=== PATIENT | male | born 1955 | race Caucasian/White ===

== ENCOUNTER 2018-03-24 01:18 | Inpatient (IN) ==
[2018-03-24] MEDS ORDERED: *HR* Ticagrelor 90 MG TABLET PO ONE (01:24)
[2018-03-24] MEDS ORDERED: *HR* Heparin 5,000 UNIT/ML VIAL IVP ONE (01:24)
[2018-03-24] MEDS ORDERED: Ondansetron 4 MG/2 ML VIAL IVP ONE (01:24)
[2018-03-24] MEDS ORDERED: *HR* Heparin 5,000 UNIT/ML VIAL IVP PRN ×2 (01:24)
--- NOTE | 2018-03-24 01:29 | Emergency Department Note ---
Disposition Clinical Impression: STEMI (ST elevation myocardial infarction) Qualifiers: Involved coronary artery: LAD coronary artery Qualified Code(s): I21.02 - ST elevation (STEMI) myocardial infarction involving left anterior descending coronary artery Disposition: Admitted As Inpatient Condition: Critical Time of Disposition: 01:50 Chest Pain HPI - General Chief Complaint: ED Chest Pain Stated Complaint: STEMI Time Seen by Provider: 03/24/18 01:21 Source: patient, EMS Mode of arrival: EMS Limitations: no limitations Vital Signs Reviewed: Yes Nursing Notes Reviewed: Yes - History of Present Illness HPI Narrative: 63-year-old male with a history of smoking, diabetes presents for evaluation of chest pain. Patient presents via EMS. Patient had a prehospital STEMI alert activated. Patient's complaining of chest pain retrosternal with radiation to the back and the left arm. Patient's prehospital EKG showed ST elevation in V1 and V2 V3 with ST depression to 3 and aVF. Patient states that he has been diaphoretic and vomiting. EMS report the patient's current full dose aspirin as well as 3 sublingual nitros without complete relief of the chest pain. Patient denies any history of heart attacks. Severity scale (1-10): 10 - Related Data Allergies Allergy/AdvReac Type Severity Reaction Status Date / Time No Known Allergies Allergy Verified 03/24/18 01:31 All systems ED: reviewed and negative except as stated. Constitutional: Denies: fever Cardiovascular: Reports: chest pain Respiratory: Denies: dyspnea Gastrointestinal: Reports: nausea, vomiting Chest Pain PMH - Past Medical History Medical history: Reports: diabetes, hyperlipidemia - Social History Smoking Status: Current every day smoker Alcohol use: Reports: none Drug use: Reports: none Physical Exam - General Limitations: no limitations General appearance: alert, in distress - Head Head exam: atraumatic, normocephalic, normal inspection - Eye Eye exam: Present: normal appearance, PERRL, EOMI - ENT ENT exam: normal exam, mucous membranes moist - Neck Neck exam: Present: normal inspection - Chest Chest inspection: Present: normal inspection, symmetric chest wall rise - Respiratory Respiratory exam: Present: normal lung sounds bilaterally - Cardiovascular Cardiovascular exam: Present: regular rate, normal rhythm. Absent: systolic murmur - Abdominal Exam Abdominal exam: Present: soft, Non-Tender - Extremities Exam Extremities exam: Present: normal inspection. Absent: pedal edema - Back Exam Back exam: Present: normal inspection - Neurological Exam Neurological exam: Present: alert, oriented X3, CN II-XII intact - Skin Skin exam: Present: warm, dry, intact, normal color Course Course Narrative: Discussed with the patient that he is actively have a heart attack. Patient will likely need cardiac catheterization. - Consultations Consultation #1: Discussed the patient's with Dr. Hargrove. Prehospital stimulator was activated. Patient's 12-lead on arrival shows more extensive ST elevation in the precordial leads. STEMI protocol orders are in place. Time: 01:30 Vital Signs Temperature 97.9 F 03/24/18 01:19 Pulse Rate 73 03/24/18 01:19 Respiratory Rate 22 03/24/18 01:19 Blood Pressure 134/69 03/24/18 01:19 O2 Sat by Pulse Oximetry 92 03/24/18 01:19 Temperature 97.9 F 03/24/18 01:19 Pulse Rate 73 03/24/18 01:19 Respiratory Rate 22 03/24/18 01:19 Blood Pressure 134/69 03/24/18 01:19 O2 Sat by Pulse Oximetry 92 03/24/18 01:19 Oxygen Delivery Oxygen Delivery Room Air Chest Pain - MDM Narrative Medical decision making narrative: Patient presented in acute distress. Patient was noted have anterior septal STEMI. [employer] Of [employer] was activated. Patient went intervention. Patient's vitals were stable during the ED course. A shunt was given antiplatelet and heparin. Patient was also ordered nitroglycerin. Patient left the emergency department stable condition. - EKG Data EKG attestation: Yes I reviewed and interpreted this EKG. EKG shows normal: sinus rhythm Rate: normal Rhythm: NSR [place]/QRS: normal ST segment elevation in: v1, v2, v3, v4, v5 T wave inversions noted in: II, III, aVF Interpretation: acute [place] S.B.A.Gem - S.B.A.R. Situation: Demographics Background: Presenting Complaint Assessment: Vital Signs, Course and respsone to treatment, Patient/Family Expectation Recommendation: Barrier(s) to disposition, Recommendation based on pending studies, treatments, or consults S.B.A.RPricilla Report Given to: Dr. Beena Chacko Repor Time: 01:49
[2018-03-24] MEDS ORDERED: Heparin 25,000 UNIT/500 ML D5W 25,000 UNIT/500 ML BAG IVC SCH (01:30)
[2018-03-24] MEDS ORDERED: *HR* Morphine 2 MG/ML SYRINGE IVP ONE (01:33)
[2018-03-24] MEDS ORDERED: 0.9 % Sodium Chloride 1,000 ML ONE (01:35)
[2018-03-24] MEDS ORDERED: ISOVUE-370 200 ML INFUS..BTL IV ONE ×2 (01:35→02:53)
[2018-03-24] MEDS ORDERED: *HR* Heparin 10,000 UNIT/10 ML VIAL ONE ×2 (01:35→03:07)
[2018-03-24] MEDS ORDERED: Heparin 1,000 UNITS/500 mL 500 ML ONE ×3 (01:35→04:29)
[2018-03-24] MEDS ORDERED: Verapamil 5 MG/2 ML VIAL ONE (01:40)
[2018-03-24] MEDS ORDERED: Nitroglycerin 1,000 MCG/10 ML VIAL IV ONE (01:40)
--- NOTE | 2018-03-24 01:45 | Pre-Sedation Evaluation ---
Pre-sedation evaluation - Pre-sedation checklist Date of procedure: 03/24/18 Procedure: [facility] Recent Vitals: Last Vital Signs Temp 97.9 F 03/24/18 01:19 Pulse 73 03/24/18 01:19 Resp 22 03/24/18 01:19 BP 134/69 03/24/18 01:19 Pulse Ox 92 03/24/18 01:19 H&P (including ROS) documented in medical record: Yes Previous reaction to sedatives/anesthetics: No Dietary Status: NPO after Midnight Airway Assessment: Patient can open mouth completely, TMJ function normal ASA Classification *see protocol: CLASS II-Mild systemic disease, E-EMERGENCY- Add to any of the above to indicate emergent (stemi) Plan of Care: Pt appropriate candidate for procedure/moderate/conscious sedation , Risks/benefits of procedure/sedation discussed w/ patient/family
[2018-03-24 01:46] LABS: Basophils # 0.1 K/mcL (0.0-0.2); Basophils % 0.9 %; Eosinophils # 0.3 K/mcL (0.0-0.6); Eosinophils % 1.9 %; Hematocrit 47.7 % (37.5-50.1); Hemoglobin 15.7 g/dL (12.9-16.9); Immature Granulocytes % 0.3 % (0-4); Lymphocytes # 4.9 K/mcL (0.6-4.6); Lymphocytes % 31.3 %; Mean Corpuscular HGB Conc 32.9 g/dL (31.6-35.5); Mean Corpuscular Hemoglobin 27.3 pg (28.0-33.3); Mean Corpuscular Volume 82.8 fL (83.0-100.0); Mean Platelet Volume 9.5 fL (9.4-12.4); Monocytes % 6.3 %; Neutrophils # 9.3 K/mcL (1.6-8.9); Platelet Count 349 K/mcL (140-400); Red Blood Count 5.76 M/mcL (4.19-5.50); Red Cell Distribution Width 13.2 % (11.5-14.5); Segmented Neutrophils % 59.3 %
--- NOTE | 2018-03-24 01:46 | History & Physical Report ---
Date of Encounter: 03/24/18 Time of Encounter: 13:30 24 Hour HP Update - Instructions Instructions: If the History and Physical is less than 30 days old and was completed prior to A.M. admission and or procedure and has NOT been updated on calendar day of procedure please complete this update prior to performing procedure. - Update Patient reports changes in Medical Condition: No Changes in examination, assessment, or condition: No Changes in Medication: No Preop tests/diagnostics Reviewed: Yes Surgery Remains Indicated: Yes Consent for Planned Operative Procedure(s) Verified: Yes
--- NOTE | 2018-03-24 01:48 | Cardiology History & Physical ---
Date of Encounter: 03/24/18 Time of Encounter: 14:00 Assessment and Plan (1) STEMI (ST elevation myocardial infarction) Current Visit: Yes Status: Acute A/R/B of emergent LHC including 1% chance of /CVA/CABG/ZORAIDA/bleeding were discussed. He is aware and agreeable with proceeding. EF assessment will be completed. Aspirin/brilinta/heparin have been given. Cardiac rehab when appropriate. Smoking cessation and controlling his diabetes. The assessment and plan as outlined above was discussed with the patient and/or family members who expressed understanding and agreement. All questions were answered. Qualifiers: Involved coronary artery: LAD coronary artery Qualified Code(s): I21.02 - ST elevation (STEMI) myocardial infarction involving left anterior descending coronary artery (2) Diabetes Current Visit: Yes Status: Acute SSI QID FS The assessment and plan as outlined above was discussed with the patient and/or family members who expressed understanding and agreement. All questions were answered. Qualifiers: Diabetes mellitus type: type 2 Diabetes mellitus complication status: with circulatory complication Diabetes mellitus complication detail: with other circulatory complications Qualified Code(s): E11.59 - Type 2 diabetes mellitus with other circulatory complications History of Present Illness Chief complaint: chest pain HPI: Mr. Galvez is a 63 year old male smoker with no previous cardiac history, uncontrolled diabetes, dyslipidemia presents with chest pain radiating around to back and left arm associated with nausea and vomiting. It was severe and minimally improved with aspirin and NTG. EKG shows anterior ST elevation MO and cath team activated. After, his family notes fairly significant fatigue and inability to exert himself for some time but no chest discomfort. They also note his legs are hurting all the time. Past Med Surg Social Fam HX - Past Medical History Medical history: diabetes, hyperlipidemia - Social History Smoking Status: Current every day smoker Alcohol use: none Drug use: none Medications and Allergies 3 Allergy/AdvReac Type Severity Reaction Status Date / Time No Known Allergies Allergy Verified 03/24/18 01:31 All Systems Review: The remainder of the systems were reviewed and are negative - Constitutional Constitutional: no chills, no fever(s) - EENT Nose, mouth and throat: no dysphagia, no epistaxis - Cardiovascular Cardiovascular: chest pain at rest, chest pain with exertion - Respiratory Respiratory: no hemoptysis, no wheezing - Gastrointestinal Gastrointestinal: no hematemesis, no hematochezia - Genitourinary Genitourinary: no hematuria, no nocturia - Musculoskeletal Musculoskeletal: no back pain, no myalgias - Integumentary Integumentary: no erythema, no rash - Neurological Neurological: no syncope, no tingling - Psychiatric Psychiatric: no hallucinations, no panic attacks - Hematological/Lymphatic Hematologic/Lymphatic: no easy bleeding, no easy bruising Physical Examination General: Conversant, Other HEENT: Atraumatic Neck: No JVD Cardiac: Reg Rate and Rhythm Lungs: Normal Breath Sounds Neuro: Alert and responsive Abdomen: Soft Skin: No rashes noted on visualized skin Musculoskeletal: No Chest Wall Tenderness Extremities: No Edema Other: distressed Results 03/24/18 05:58 03/24/18 05:58 - EKG Interpretation EKG results cardiology: personally reviewed (anteroseptal current of injury)
[2018-03-24 01:52] LABS: INR 1.1; Prothrombin Time 12.4 Seconds (9.4-12.1)
[2018-03-24] MEDS ORDERED: Dextrose Gel 15 GM/37.5 ML TUBE PO PRN ×2 (01:54)
[2018-03-24] MEDS ORDERED: D5% in Water 1,000 ML IVC PRN (01:54)
[2018-03-24] MEDS ORDERED: *HR* Dextrose 50 % in Water (Syg) 50 ML SYRINGE IVP PRN (01:54)
[2018-03-24] MEDS ORDERED: Ondansetron 4 MG/2 ML VIAL IVP PRN (01:55)
[2018-03-24] MEDS ORDERED: *HR* HYDROcodone/Acet 5/325 mg TABLET PO PRN (01:55)
[2018-03-24] MEDS ORDERED: *HR* Midazolam HCl 2 MG/2 ML VIAL ONE ×3 (01:57→02:58)
[2018-03-24] MEDS ORDERED: *HR* FentaNYL (PF) 100 MCG/2 ML VIAL ONE (01:57)
--- NOTE | 2018-03-24 01:59 | Emergency Department Note ---
Disposition Clinical Impression: STEMI (ST elevation myocardial infarction) Qualifiers: Involved coronary artery: LAD coronary artery Qualified Code(s): I21.02 - ST elevation (STEMI) myocardial infarction involving left anterior descending coronary artery Disposition: Admitted As Inpatient Condition: Critical General Adult HPI - General Chief complaint: ED Chest Pain Stated complaint: STEMI Time Seen by Provider: 03/24/18 01:21 Source: patient, EMS Mode of arrival: EMS Limitations: no limitations Nursing Notes Reviewed: Yes Vital Signs Reviewed: Yes - History of Present Illness Pain Scale: 10 - Related Data Allergies Allergy/AdvReac Type Severity Reaction Status Date / Time No Known Allergies Allergy Verified 03/24/18 01:31 Constitutional: Denies: fever Cardiovascular: Reports: chest pain Respiratory: Denies: dyspnea Gastrointestinal: Reports: nausea, vomiting Past Medical History - Past Medical History Medical history: Reports: diabetes, hyperlipidemia - Social History Smoking Status: Current every day smoker Alcohol use: Reports: none Drug use: Reports: none Physical Exam - General Limitations: no limitations General appearance: alert, in distress Course Vital Signs Temperature 97.9 F 03/24/18 01:19 Pulse Rate 73 03/24/18 01:19 Respiratory Rate 22 03/24/18 01:19 Blood Pressure 134/69 03/24/18 01:19 O2 Sat by Pulse Oximetry 92 03/24/18 01:19 Temperature 97.9 F 03/24/18 01:19 Pulse Rate 101 03/24/18 01:30 Respiratory Rate 22 03/24/18 01:19 Blood Pressure 129/70 03/24/18 01:30 O2 Sat by Pulse Oximetry 92 03/24/18 01:30 Oxygen Delivery Oxygen Delivery Room Air Medical Decision Making - Lab Data Result diagrams: 03/24/18 01:30 03/24/18 01:30 Lab Results 03/24/18 03/24/18 03/24/18 Range/Units 01:30 01:30 01:30 WBC 15.6 H (4.3-11.1) K/mcL RBC 5.76 H (4.19-5.50) M/mcL Hgb 15.7 (12.9-16.9) g/dL Hct 47.7 (37.5-50.1) % MCV 82.8 L (83.0-100.0) fL MCH 27.3 L (28.0-33.3) pg MCHC 32.9 (31.6-35.5) g/dL RDW 13.2 (11.5-14.5) % Plt Count 349 (140-400) K/mcL MPV 9.5 (9.4-12.4) fL Immature Gran % 0.3 (0-4) % Seg Neutrophils % 59.3 % Lymphocytes % 31.3 % Monocytes % 6.3 % Eosinophils % 1.9 % Basophils % 0.9 % Neutrophils # 9.3 H (1.6-8.9) K/mcL Lymphocytes # 4.9 H (0.6-4.6) K/mcL Monocytes # 1.0 (0.0-1.3) K/mcL Eosinophils # 0.3 (0.0-0.6) K/mcL Basophils # 0.1 (0.0-0.2) K/mcL PT 12.4 H (9.4-12.1) Seconds INR 1.1 APTT 33.0 (26.0-36.0) Seconds Sodium 136 (136-145) mEq/L Potassium 4.1 (3.5-5.1) mEq/L Chloride 103 (98-107) mEq/L Carbon Dioxide 25 (23-29) mEq/L BUN 8 (8-23) mg/dL Creatinine 0.81 (0.70-1.30) mg/dL Est GFR ( Amer) > 60 (> 60) Est GFR (Non-Af Amer) > 60 (> 60) BUN/Creatinine Ratio 10 (6-26) Glucose 365 H (70-105) mg/dL Calculated Osmolality 295 (280-300) Calcium 9.4 (8.6-10.3) mg/dL Magnesium 1.9 (1.6-2.6) mg/dL Troponin I 0.06 H* (< 0.04) ng/mL Critical Care Time Critical Care Time: Yes Total Critical Care Time: 35 Attestation: Critical care performed: Time is exclusive of separately billable procedures. Time includes: direct patient care, patient reassessment, coordination of patient care, interpretation of data (laboratory data, radiology data, and respiratory data), review of patient's medical records, medical consultation and documentation of patient care. Procedures included in critical care time: Procedures excluded from critical care time: Attestation Statement - Attestation Attestation: I, Ang Mann MD, personally evaluated this patient and discussed their management with the resident physician. I reviewed the resident's note and agree with the documented findings, medical decision making, and plan of care. 63-year-old male presents to the emergency department by ambulance with a complaint of substernal chest pain radiating into the left chest and back and down the left arm. Pain started about 1 hour 15 minutes prior to arrival. He admits to nausea and vomiting and diaphoresis. Denies shortness of breath. No prior cardiac history. Patient does have a history of diabetes in the past but not been on any medication and does not have a doctor for the past 10 years. Patient rates the pain a 10 out of 10. He received aspirin per EMS prior to arrival. He received nitroglycerin 3 with no relief. Prehospital EKG showed an anteroseptal STEMI. Repeat EKG on arrival here confirms anteroseptal STEMI with ST elevations in V1 through V5 and inferior ST depressions. A STEMI alert was called prior to patient's arrival in the emergency department based on the transmitted EKG. On examination patient is a well-developed well-nourished male in no acute distress. He is alert and oriented 3. There is no cyanosis or diaphoresis. Breath sounds are clear and equal bilaterally. Heart regular rate and rhythm. Soft and nontender with normal bowel sounds. No pedal edema. Labs reviewed. Troponin 0.06. Patient taken directly from the emergency department to the cardiac catheter lab.
[2018-03-24] MEDS ORDERED: Tirofiban 12.5 MG/250ML 12.5 MG/250 ML BAG IVC SCH (02:00)
[2018-03-24 02:08] LABS: BUN/Creatinine Ratio 10 (6-26); Blood Urea Nitrogen 8 mg/dL (8-23); Calcium 9.4 mg/dL (8.6-10.3); Carbon Dioxide 25 mEq/L (23-29); Chloride 103 mEq/L (98-107); Glucose 365 mg/dL (70-105); Magnesium 1.9 mg/dL (1.6-2.6); Osmolality,Calculated 295 (280-300); Potassium 4.1 mEq/L (3.5-5.1); Sodium 136 mEq/L (136-145); eGFR For African Americans > 60 (> 60); eGFR For Non-African Americans > 60 (> 60)
[2018-03-24 02:19] LABS: Troponin I 0.06 ng/mL (< 0.04)
[2018-03-24] MEDS ORDERED: Tirofiban 12.5 MG/250ML 12.5 MG/250 ML BAG ONE (02:25)
[2018-03-24] MEDS ORDERED: *HR* Adenosine 6 MG/2 ML VIAL IVP ONE (02:29)
[2018-03-24] MEDS ORDERED: niCARdipine 20 MG/200 ML MLS IVC ONE (02:33)
[2018-03-24] MEDS ORDERED: *HR* Metoprolol 5 MG/5 ML VIAL IVP ONE (03:48)
[2018-03-24] MEDS ORDERED: Amiodarone Premix 360 MG/200 ML BAG IVC ONE ×2 (04:24→05:03)
[2018-03-24] MEDS: FentaNYL (PF) 1,000 MCG in 0.9 % Sodium Chloride 80 ML IVC SCH ×2 (05:00→20:30)
[2018-03-24] MEDS: 0.9 % Sodium Chloride 1,000 ML IVC SCH ×2 (05:00→21:23)
--- NOTE | 2018-03-24 05:00 | Event Note ---
Date of Encounter: 03/24/18 Time of Encounter: 05:00 - Cardiology Event Note Poorly controlled diabetic smoker presented with anterior STEMI. Proceeded with transradial LHC, occluded proximal LAD. PTCA of proximal mid LAD with 2.0 compliant restoring SHARI 2 flow followed by 2.25 MARYAN overlapping (24+28) proximal to mid. Slow flow after this, IC therapies given. Patient already on aggrastat/heparin/brilinta/aspirin. PTCA of proximal portion of stents. At this point there was no flow past the proximal portion of the stent. Patient was becoming increasing agitated and unable to stop moving so he was intubated with some difficulty requiring anesthesia support with glidescope after rocuronium/etomidate/versed/fentanyl. At this point, wanted to support him with IABP or Impella but after accessing the femoral, found both common iliacs were occluded and unable to wire past lesion. Reballooned the stents and gave additional IC meds for no flow/slow flow but no improvement. Evaluated the RCA which was diffusely diseased. EF 20-25% with akinetic AL/apex, however LVEDP < 20. Patient remained hemodynamically stable without pressors and with rare PVC. Contacted our cardiac surgeon who did not think he was candidate for emergent CABG. Also discussed with Interventional cardiology at [place], CT surgery [place] and CT surgery at [place] for various options including emergent CABG for DAVIS LAD and left axillary impella. At this point since he is stable, the consensus among everyone was there was no need for intervention or surgery at this point and to continue supportive care; they did kindly offer to take the patient in transfer. Since he is stable at this time, will keep him intubated and sedated until Sunday, try to wean him off of sedation/ ventilator. Family was informed of all events and discussion with surgeons and IC at [place] without any further questions.
--- NOTE | 2018-03-24 05:30 | Invasive Diagnostic Lab Proc ---
Name: Doug Galvez Date of Study: 03/24/2018 Date: 1955 Ht: 68.9in Medical Record#: [id number] Age: 63 Wt: 149.91lb Gender: Male BSA: 1.83 Order #: [id number] BMI: 22.2 Physicians Procedure Physician: John Hargrove MD, [facility] Referring MD: None Referring MD: Staff Name Position Time In Yong Nguyễn RN Monitor 01:56 AM Deangelo Hsieh RN Room Service Clerk 01:56 AM Kori Chiu RT (R) Scrub 01:56 AM Indications Indication STEMI Procedures Performed Procedure PRQ CARD REVASC LA 1 VSL L HRT ARTERY/VENTRICLE ANGIO Pre-Procedure Checklist Informed consent is complete signed and on chart. H&P is on chart. ID band is on and ID verified with patient. Pt not NPO for procedure and MD aware. The procedure was described for the patient and questions were answered. Blood Pressure: 134/69 ECG is on chart. Rhythm: NSR Plan of Care Patient will tolerate the procedure without complications. Adequate level of comfort will be maintained. Hemodynamics will remain stable Patient will recover from procedure without complications. Respiratory function will be maintained. Cardiac rhythm will remain stable. Patient temperature will be maintained. Patient and/or family have verbalized understanding of the procedure. Patient Education Chief Complaint/Reason for Test: Cardiac Cath Developmental Category: Adult (18-64 years) Developmentally Appropriate for Age: Yes Learning Barriers: Sedated Education Needs: Procedure Education Method: Verbal Information Taught: Cardiac Cath Educational Evaluation: Able to repeat information Intravenous Access Time IV Size Location DC'd Fluid/Drip Rate Units RN 01:39 AM 18g 1 1/" Patent On Arrival Rt Forearm Deangelo Hsieh RN Lt Forearm 0.9NaCl 25 ml/hr Deangelo Hsieh RN Allergies No Known Allergies Vital Signs Time BP (mmHg) HR (bpm) O2 Sat. RR (bpm) LOC 01:39 AM 134 / 69 73 92 % 22 5 = Fully awake and oriented or at pre-proc level 01:57 AM / % 5 = Fully awake and oriented or at pre-proc level 01:57 AM / % 4 = Oriented but drowsy 02:12 AM / % 4 = Oriented but drowsy 02:27 AM / % 3 = Answers simple questions/follows commands 03:00 AM / % 0 = No reflexes elicited 03:18 AM / % 0 = No reflexes elicited 03:33 AM / % 0 = No reflexes elicited 03:48 AM / % 1 = Reflexes present/moves spontaneously 04:03 AM / % 0 = No reflexes elicited 01:56 AM 118 / 66 101 96 % 02:01 AM 125 / 72 102 93 % 02:06 AM 112 / 66 105 93 % 02:11 AM 118 / 64 100 96 % 02:16 AM 124 / 86 100 96 % 02:21 AM 126 / 71 98 96 % 02:26 AM 118 / 73 98 92 % 02:31 AM 121 / 80 90 95 % 02:36 AM 104 / 59 118 94 % 02:41 AM 109 / 68 96 92 % 03:37 AM 163 / 101 125 98 % 03:41 AM 156 / 88 130 97 % 03:46 AM 161 / 96 129 98 % 03:51 AM 160 / 85 118 97 % 03:56 AM 137 / 85 103 97 % 04:01 AM 151 / 89 105 98 % 04:06 AM 147 / 85 106 98 % 04:11 AM 133 / 82 105 98 % 04:16 AM 136 / 79 106 98 % 04:21 AM 140 / 80 107 99 % 02:46 AM 113 / 60 97 93 % 02:51 AM 104 / 64 99 95 % 02:56 AM 119 / 65 107 87 % 03:01 AM 117 / 67 109 95 % 03:06 AM 116 / 64 103 98 % 03:11 AM 112 / 66 106 98 % 03:16 AM 112 / 70 110 99 % 03:21 AM 118 / 75 112 98 % 03:26 AM 100 / 62 97 98 % 03:31 AM 112 / 71 105 97 % 04:26 AM 116 / 75 103 98 % 04:31 AM 113 / 71 102 99 % 04:36 AM 114 / 67 102 99 % 04:18 AM / % 0 = No reflexes elicited Procedural Medications Time Medication Dose Units Method Given By 01:57 AM Oxygen 3 L/min nasal cannula Deangelo Hsieh RN 02:00 AM Lidocaine 2% 0.5 ml Subcutaneous John Hargrove MD, FACC 02:01 AM Versed 2 mg Intravenous Deangelo Hsieh RN 02:01 AM Fentanyl 50 mcg Intravenous Deangelo Hsieh RN 02:01 AM Heparin 0 units Nitroglycerin 200 mcg Verapamil 2.5 mg Intraarterial John Hargrove MD, FACC 02:03 AM Oxygen 5 L/min nasal cannula Deangelo Hsieh RN 02:16 AM Versed 1 mg Intravenous Deangelo Hsieh RN 02:16 AM Fentanyl 25 mcg Intravenous Deangelo Hsieh RN 02:23 AM Versed 1 mg Intravenous Deangelo Hsieh RN 02:23 AM Fentanyl 25 mcg Intravenous Deangelo Hsieh RN 02:27 AM Aggrastat Bolus: 33 ml Intravenous Deangelo Hsieh RN 02:28 AM Angiomax 1.75mg/kg/hr: 12 ml/hr Intravenous Deangelo Hsieh RN 02:30 AM Adenosine 200 mcg Intracoronary John Hargrove MD, FAC 02:32 AM Nitroglycerin 200 mcg IntracoronJohn Torres MD 02:35 AM Cardene 100 mcg Intracoronary John Hargrove MD 02:42 AM Lidocaine 2% 10 ml Subcutaneous John Hargrove MD, FAC 02:42 AM Heparin 3000 units Intravenous Yong Nguyễn RN 03:08 AM Heparin 2000 units Intravenous Deangelo Hsieh RN 02:55 AM Versed 2 mg Intravenous Deangelo Hsieh RN 02:50 AM Rocuronium 50 mg Intravenous Yong Nguyễn RN 02:50 AM Etomidate 20 mg Intravenous Yong Nguyễn RN 03:24 AM Cardene 100 mcg IntracJohn Rausch MD 03:23 AM Cardene 100 mcg IntracJohn Rausch MD 03:22 AM Cardene 100 mcg IntracoronJohn Torres MD 03:51 AM Lopressor 2.5 mg Intravenous Deangelo Hsieh RN 03:40 AM Fentanyl 50 mcg/hr Intravenous Deangelo Hsieh RN 03:40 AM versed 5 mg/hr Intravenous Yong Nguyễn RN 04:01 AM Rocuronium 50 mg Intravenous Deangelo Hsieh RN 04:45 AM Amiodarone 1 mg/min Intravenous Deangelo Hsieh RN ASA Classification: Emergent Procedure: ASA score is assumed Fox Score Preprocedure Postprocedure Activity 2- Moves 4 extremities sustained head lift Activity 0- Unable to move extremities or lift head Circulation 2- SBP +/= 20 points of pre-anesthetic level Circulation 2- SBP +/= 20 points of pre-anesthetic level Consciousness 2- Awake and alert oriented x 3 Consciousness 0- Non-responsive O2 Saturation 2- Able to maintain O2 satruation of 92% on room air O2 Saturation 1- Needs O2 inhalation to maintain O2 saturation of 90% Respiratory 2- Able to deep breathe and cough well Respiratory 0- Apneic requires ventilator or assisted respiration Total Score 10 Total Score 3 Contrast Agent: Isovue Diagnostic Contrast: 263 ml Total Contrast: 263 ml Fluoro Dose: 1320 mGy Activated Clotting Time Time Seconds to Clot 02:42 AM 189 03:08 AM 227 03:47 AM 202 Procedure Log Time Note Enter By 01:36 AM CathStat 01:55 AM Case Start 01:56 AM Vitals capture started with the following parameters, Patient=Adult, Interval=5 min, Initial Hccfrrjo=170 mmHg, Deflation Rate=5 mmHg, Cuff placed on Right Arm 01:56 AM Pt arrived to [place] lab technician 2 at 01:50 csmith :56 AM Yong Nguyễn RN Position: Monitor Time in: csmith 01:56 AM Deangelo Hsieh RN Position: Room Service Clerk Time in: :56 csmith :56 AM ZV=142 bpm, MDJY=699/66 mmhg, SpO2=96.0 %, Comment=sr 01:56 AM Kori Chiu (R) Position: Scrub Time in: :56 csmith 01:56 AM Patient charges- Angio tray pack, Navilyst 3mm J, Pulse Oximetry and ACIST tubing and transducer csmith :56 AM Hair removed from procedure site in procedure lab using clippers. Right wrist and right groin prepped with Chloraprep by Kori Chiu (R), then patient was draped. Skin intact. csmith :56 AM Physician arrived :56 csmith 01:57 AM Procedure start [facility] Time: :57 Oxygen on at 3 L/min per nasal cannula by Deangelo Hsieh RN [facility] :57 AM Time: :57 Patient comfortable and pain free: Yes [facility] Time: :57LOC: 5 = Fully awake and oriented or at pre-proc level csmith :57 AM Recorded ECG: OZ=058 Condition=Condition 1 02:00 AM Time out performed according to hospital policy csmith 02:00 AM Time: 02:00 0.5 ml Lidocaine 2% to right radial Subcutaneous Given by John Hargrove MD, [facility] csmith 02:01 AM Access obtained by percutaneous puncture. 5/6Fr 11cm Terumo [place] sheath placed in right Radial artery. [id number] [facility] 02[facility]01 AM Time: 02:01 Versed 2 mg Intravenous Given by Deangelo Hsieh RN csmith 02:01 AM Time: 02:01 Fentanyl 50 mcg Intravenous Given by Deangelo Hsieh RN csmith 02:01 AM FR=368 bpm, HCZL=562/72 mmhg, SpO2=93.0 %, Comment=sr 02:01 AM Time: 02:01 Patient given 0 units Heparin, 200 mcg Nitroglycerin, and 2.5 mg Verapamil Intraarterial by John Hargrove MD, [facility]. This is given to reduce risk of vessel spasm and thrombosis. csmith 02:02 AM 0.035 260cm Navilyst 3mmJ wire [id number] csmith 02:03 AM 6Fr RBL 3.5 [place] guide catheter was used to cannulate the PCI vessel successfully. reused? No csmith 02:03 AM Pressure channel 1 zeroed. 02:03 AM Time: 02:03 Oxygen on at 5 L/min per nasal cannula by Deangelo Hsieh RN csmith 02:03 AM LCA angiography performed in multiple views. csmith 02:05 AM Recorded Pressure: Ao, HR=99, Condition=Condition 1 (Aorta) Ao 124/85/103 02:05 AM Lesion found in Proximal LAD. Pre Stenosis: 100 Pre SHARI Flow: 0: No Flow/No perfusion csmith 02:[address] [place] 190cm guide wire across target lesion- successful. reused? No csmith 02:06 AM wire across lesion csmith 02:06 AM 2.0 mm x 15 mm Emerge Monorail balloon across target lesion- successful. reused? No csmith 02:06 AM XF=172 bpm, CTCL=460/66 mmhg, SpO2=93.0 %, Comment=sr 02:08 AM Balloon inflated @ 6 pallavi for 8 seconds csmith 02:08 AM Balloon inflated @ 12 pallavi for 10 seconds csmith 02:09 AM Balloon inflated @ 12 pallavi for 11 seconds csmith 02:09 AM Balloon inflated @ 10 pallavi for 9 seconds csmith 02:09 AM Balloon inflated @ 10 pallavi for 9 seconds csmith 02:10 AM Balloon inflated @ 10 pallavi for 10 seconds csmith 02:11 AM Balloon inflated @ 14 pallavi for 13 seconds csmith 02:11 AM OO=003 bpm, JIFY=472/64 mmhg, SpO2=96.0 %, Comment=sr 02:12 AM Balloon inflated @ 14 pallavi for 11 seconds csmith 02:12 AM Time: 01:57LOC: 4 = Oriented but drowsy csmith 02:12 AM Time: 01:57 Patient comfortable and pain free: Yes csmith 02:16 AM 2.5mm x 28mm Synergy drug-eluting stent across target lesion- successful Lot #[id number] csmith 02:16 AM Time: 02:16 Versed 1 mg Intravenous Given by Deangelo Hsieh RN csmith 02:16 AM FY=997 bpm, IIBM=561/86 mmhg, SpO2=96.0 %, Comment=sr 02:16 AM Time: 02:16 Fentanyl 25 mcg Intravenous Given by Deangelo Hsieh RN csmith 02:18 AM Stent deployed @ 12 pallavi for 21 seconds csmith 02:20 AM Stent delivery system removed intact. csmith 02:20 AM 2.25mm x 24mm Synergy drug-eluting stent across target lesion- successful Lot #[id number] csmith 02:21 AM Recorded Pressure: Ao, TK=726, Condition=Condition 1 (Aorta) Ao 132/88/109 02:21 AM HR=98 bpm, DDYG=781/71 mmhg, SpO2=96.0 %, Comment=sr 02:22 AM 2.25mm x 24mm Synergy drug-eluting stent across target lesion- successful Lot #[id number], stent deployed @ 11 pallavi for 16 csmith 02:23 AM Time: 02:23 Versed 1 mg Intravenous Given by Deangelo Hsieh RN csmith 02:23 AM Time: 02:23 Fentanyl 25 mcg Intravenous Given by Deangelo Hsieh RN csmith 02:25 AM 2.5 mm x 15mm NC Trek Rx balloon across target lesion- successful. reused? No csmith 02:26 AM Balloon inflated @ 16 pallavi for 14 seconds csmith 02:26 AM HR=98 bpm, UHCW=361/73 mmhg, SpO2=92.0 %, Comment=sr 02:27 AM Balloon inflated @ 14 pallavi for 8 seconds csmith 02:27 AM Time: 02:12 Patient comfortable and pain free: Yes csmith 02:27 AM Time: 02:12LOC: 4 = Oriented but drowsy csmith 02:27 AM Time: 02:27 Aggrastat Bolus: 33 ml Intravenous Given by Deangelo Hsieh RN Green pump csmith 02:28 AM Balloon inflated @ 15 pallavi for 8 seconds csmith 02:28 AM Balloon inflated @ 16 pallavi for 12 seconds csmith 02:28 AM Time: 02:28 Angiomax 1.75mg/kg/hr: 12 ml/hr Intravenous Given by Deangelo Hsieh RN Green pump csmith 02:29 AM Balloon catheter removed intact. csmith 02:31 AM Time: 02:30 Adenosine 200 mcg administered Intracoronary by John Hargrove MD, [facility] csmith 02:31 AM Recorded Pressure: Ao, BQ=295, Condition=Condition 1 (Aorta) Ao 141/88/112 02:31 AM HR=90 bpm, YVSQ=984/80 mmhg, SpO2=95.0 %, Comment=sr 02:32 AM Time: 02:32 Nitroglycerin 200 mcg Intracoronary Given by Jonh Hargrove MD csmith 02:35 AM Time: 02:35 Cardene 100 mcg Intracoronary Given by John Hargrove MD csmith 02:36 AM IV=695 bpm, VFTG=615/59 mmhg, SpO2=94.0 %, Comment=sr 02:37 AM Patient being uncooperative despite repeated education to hold still. MOving extremities x 4. RT called to intubate. csmith 02:41 AM HR=96 bpm, BQRG=865/68 mmhg, SpO2=92.0 %, Comment=sr 02:42 AM Time: 02:42 10 ml Lidocaine 2% to right groin Subcutaneous Given by John Hargrove MD, [facility] csmith 02:42 AM Access obtained by percutaneous puncture. 6Fr 10cm Terumo [place] sheath placed in right Femoral artery. [id number] csmith 02:42 AM Time: 02:27LOC: 3 = Answers simple questions/follows commands csmith 02:42 AM Time: 02:27 Patient comfortable and pain free: Yes csmith 02:42 AM At 02:42 the ACT was 189 seconds. csmith 02:43 AM Time: 02:42 Heparin 3000 units Intravenous Given by Yong Nguyễn RN IVP csmith 02:46 AM HR=97 bpm, NMYR=401/60 mmhg, SpO2=93.0 %, Comment=sr 02:50 AM RT at bedside ready for intubation, suction, C-mac video laryngoscope and ETT available csmith 02:50 AM Time: 02:50 Rocuronium 50 mg Intravenous Given by Yong Nguyễn RN csmith 02:50 AM Time: 02:50 Etomidate 20 mg Intravenous Given by Yong Nguyễn RN csmith 02:51 AM HR=99 bpm, BANO=912/64 mmhg, SpO2=95.0 %, Comment=sr 02:55 AM RT unable to intubate x 1 attempt with C-mac. Anesthesia paged. Pt bagged per BVM and oral airway without difficulty. Patient to ventilator. csmith 02:55 AM Time: 03:09 Versed 2 mg Intravenous Given by Deangelo Hsieh RN csmith 02:56 AM YD=146 bpm, WLET=652/65 mmhg, SpO2=87.0 %, Comment=sr 03:01 AM XM=764 bpm, ASWZ=756/67 mmhg, SpO2=95.0 %, Comment=sr 03:06 AM LU=734 bpm, QTOC=086/64 mmhg, SpO2=98.0 %, Comment=sr 03:08 AM At 03:08 the ACT was 227 seconds. [facility] 03[facility] AM Time: 03:08 Heparin 2000 units Intravenous Given by Deangelo Hsieh RN [facility] 03:11 AM IL=929 bpm, TGEJ=891/66 mmhg, SpO2=98.0 %, Comment=sr 03:16 AM BD=251 bpm, FBAN=105/70 mmhg, SpO2=99.0 %, Comment=sr 03:18 AM Anesthesia at bedside (Dr. Kay and Davy Yusuf [employer] W[employer]E TECHNICIAN). Intubated x 1 attempt with Cmac per B Yusuf without difficulty. Bilateral chest rise and + color change with CO2 monitor. Patient to ventilator 100% FiO2, peep 5, tv 500ml, rr 14 [facility] 03:18 AM Time: 03:00LOC: 0 = No reflexes elicited [facility] 03:21 AM BG=510 bpm, RFMF=813/75 mmhg, SpO2=98.0 %, Comment=sr 03:23 AM Pressure channel 1 zeroed. 03:24 AM Time: 03:24 Cardene 100 mcg Intracoronary Given by John Hargrove MD [facility] 03:25 AM Time: 03:23 Cardene 100 mcg Intracoronary Given by John Hargrove MD [facility] 03:26 AM Time: 03:22 Cardene 100 mcg Intracoronary Given by John Hargrove MD [facility] 03:26 AM HR=97 bpm, QOFK=634/62 mmhg, SpO2=98.0 %, Comment=sr 03:31 AM CZ=333 bpm, SJMW=756/71 mmhg, SpO2=97.0 %, Comment=sr 03:31 AM 2.25 mm x 15 mm Emerge Monorail balloon across target lesion- successful. reused? No csmith 03:32 AM Balloon inflated @ 6 pallavi for 10 seconds csmith 03:32 AM balloon removed intact csmith 03:32 AM 2.25 mm x 15mm NC Trek Rx balloon across target lesion- successful. reused? No csmith 03:33 AM Time: 03:18 Patient comfortable and pain free: Yes csmith 03:33 AM Time: 03:18LOC: 0 = No reflexes elicited csmith 03:33 AM Balloon inflated @ 12 pallavi for 15 seconds csmith 03:33 AM Balloon inflated @ 12 pallavi for 12 seconds csmith 03:34 AM Balloon inflated @ 12 pallavi for 6 seconds csmith 03:35 AM Balloon inflated @ 12 pallavi for 5 seconds csmith 03:36 AM balloon and wire removed csmith 03:37 AM PR=709 bpm, QDII=845/101 mmhg, SpO2=98.0 %, Comment=sr 03:38 AM catheter removed csmith 03:38 AM 6Fr JR 4 [place] guide catheter was used to cannulate the PCI vessel successfully. reused? No csmith 03:39 AM RCA angiography performed in multiple views. csmith 03:40 AM Time: 03:40 Fentanyl 50 mcg/hr Intravenous Given by Deangelo Hsieh RN Green pump csmith 03:40 AM Coronary Dominance: Co-dominant csmith 03:40 AM Time: 03:40 versed 5 mg/hr Intravenous Given by Yong Nguyễn RN Green pump csmith 03:40 AM catheter removed csmith 03:40 AM 5Fr Pigtail catheter inserted over the wire [facility] csmith 03:40 AM Catheter selectively placed in left ventricle csmith 03:41 AM Recorded Pressure: LV, LE=360, Condition=Condition 1 (Left Ventricle) LV 171/9/22 03:41 AM MT=172 bpm, ICXV=756/88 mmhg, SpO2=97.0 %, Comment=sr 03:42 AM Bolus angiogram of left Ventricle complete: 12 ml/sec for a total of 20 mls csmith 03:42 AM Catheter removed csmith 03:43 AM Recorded Pressure: LV, Ao, JM=513, Condition=Condition 1 (Left Ventricle) LV 66/65/64, (Aorta) Ao 133/41/86 03:43 AM Recorded Pressure: LV, Ao, JY=186, Condition=Condition 1 (Left Ventricle) LV 156/10/15, (Aorta) Ao 158/72/112 03:44 AM wire removed csmith 03:[address] Hargrove reviewing films csmith 03:46 AM DP=209 bpm, FYOZ=027/96 mmhg, SpO2=98.0 %, Comment=sr 03:47 AM At 03:47 the ACT was 202 seconds. csmith 03:48 AM Time: 03:33LOC: 0 = No reflexes elicited csmith 03:48 AM Time: 03:33 Patient comfortable and pain free: Yes csmith 03:51 AM QH=276 bpm, JHNQ=427/85 mmhg, SpO2=97.0 %, Comment=sr 03:51 AM Time: 03:51 Lopressor 2.5 mg Intravenous Given by Deangelo Hsieh RN csmith 03:53 AM Lesion found in Proximal RCA. Pre Stenosis: 50 Pre SHARI Flow: 3: Complete and Brisk Flow/Perfusion csmith 03:53 AM Lesion found in Distal RCA. Pre Stenosis: 80 Pre SHARI Flow: 3: Complete and Brisk Flow/Perfusion csmith 03:53 AM Lesion found in Right PDA. Pre Stenosis: 70 Pre SHARI Flow: 3: Complete and Brisk Flow/Perfusion csmith 03:[address] Hargrove discussing case with [place] [facility], [place] [facility] and Interventional Cardiology on-call csmith 03:56 AM QS=650 bpm, GKZZ=096/85 mmhg, SpO2=97.0 %, Comment=sr 04:[address] Hargrove talking to Dr. Rahman at this time. Dr. Rahman defers taking patient to surgery this morning. csmith 04:01 AM Time: 04:01 Rocuronium 50 mg Intravenous Given by Deangelo Hsieh RN csmith 04:01 AM XU=818 bpm, ZARA=826/89 mmhg, SpO2=98.0 %, Comment=sr 04:02 AM Procedure completed at 04:02 csmith 04:02 AM Did you address SHARI flow and Dominance? Yes csmith 04:03 AM Sign out completed: Radiation Dose 1320 mGy Fluoro Time: 12.5 Isovue 370 - 200ml contrast 263 ml given by John Hargrove MD, FACC. Complications: NoneCardiac Rehab Consult needed: YesConfirmed administered medications: Yes csmith 04:03 AM Isovue 370 - 200ml,2 Bottle(s) used. csmith 04:03 AM Sheath left in place to be pulled on floor/holding area csmith 04:03 AM Estimated Blood Loss: less than 20cc csmith 04:03 AM Time: 03:48 Patient comfortable and pain free: Yes csmith 04:03 AM Time: 03:48LOC: 1 = Reflexes present/moves spontaneously csmith 04:03 AM Post ECG NSR csmith 04:05 AM Post Blood Pressure 137/74 csmith 04:05 AM No information taught to patient, patient unable to learn d/t critical illness/intubation/sedation at this time csmith 04:05 AM Plavix, Effient or Brilinta given No - given in ED csmith 04:06 AM Family placed in consult room. csmith 04:06 AM YF=406 bpm, QDSL=866/85 mmhg, SpO2=98.0 %, Comment=st 04:11 AM [facility] unable to take patient at this time. Dr. Hargrove talking with [facility] Dr. Ashley at this time. csmith 04:11 AM KG=197 bpm, DLOB=948/82 mmhg, SpO2=98.0 %, Comment=sr 04:16 AM BM=675 bpm, NUGR=968/79 mmhg, SpO2=98.0 %, Comment=sr 04:18 AM Time: 04:03 Patient comfortable and pain free: Yes csmith 04:18 AM Time: 04:03LOC: 0 = No reflexes elicited csmith 04:21 AM MY=028 bpm, OJJS=721/80 mmhg, SpO2=99.0 %, Comment=sr 04:23 AM Aggrastat gtt stopped at this time csmith 04:23 AM Arterial sheath pulled, Vasc Band closure device used and was Successful S/N. csmith 04:26 AM BE=540 bpm, ELZT=467/75 mmhg, SpO2=98.0 % 04:31 AM BH=201 bpm, JVFB=304/71 mmhg, SpO2=99 % 04:36 AM FK=387 bpm, RIOP=305/67 mmhg, SpO2=99 % 04:38 AM Time: 04:18LOC: 0 = No reflexes elicited csmith 04:38 AM Time: 04:18 Patient comfortable and pain free: Yes csmith 04:44 AM Stewart inserted utilizing sterile technique per Deangelo Hsieh RN csmith 04:45 AM Time: 04:45 Amiodarone 1 mg/min Intravenous Given by Deangelo Hsieh RN Green pump csmith 04:52 AM Report given to Carmen FRAUSTO Pt taken to ICU Room #4. 04:51 csmith 04:52 AM Patient out of room: 04:52 csmith Complications Complication None Hemodynamics Pressures Site Systolic/A Wave Diastolic/V Wave Mean AO 124 85 103 AO 132 88 109 AO 141 88 112 LV 171 9 22 LV 66 65 64 AO 133 41 86 LV 156 10 15 AO 158 72 112 Post Procedure Information Blood Pressure: 137/74 mmHg Rhythm: NSR Post procedural instructions were given Surgery consult for CABG Closure Device Time Device Success/Fail 03/24/2018 4:30:00 AM Mechanical Compression yes Site Checks Time Location Status Staff Sheath In? Note 04:36 AM Rt Groin No bleeding/ No Hematoma Kori Chiu RT (R) 04:34 AM Lt Groin No bleeding/ No Hematoma Kori Chiu RT (R) 04:36 AM Rt Wrist No bleeding/ No Hematoma Kori Chiu RT (R) Pulses Time Site Pre-Procedure Post-Procedure Note 03/24/2018 2:30:00 AM Rt Radial 2+ 1+ 03/24/2018 2:30:00 AM Bilateral DP & PT Doppler Doppler Updated by Yong Nguyễn RN on 03/24/2018 5:21:37 AM electronically signed on 03/24/2018 5:23:12 AM with status of Final
[2018-03-24] MEDS: Nitroglycerin 25 MG/250 ML INFUS..BTL IVC SCH ×2 (05:41→23:28)
[2018-03-24] MEDS: *HR* Enoxaparin 40 MG/0.4 ML SYRINGE SQ SCH (05:53)
[2018-03-24] MEDS: Insulin LISPRO 300 UNITS/3 ML VIAL SQ SCH ×4 (05:53→23:26)
[2018-03-24 06:11] LABS: Basophils # 0.1 K/mcL (0.0-0.2); Basophils % 0.6 %; Eosinophils % 0.1 %; Hematocrit 46.4 % (37.5-50.1); Hemoglobin 15.1 g/dL (12.9-16.9); Immature Granulocytes % 0.6 % (0-4); Lymphocytes # 1.3 K/mcL (0.6-4.6); Lymphocytes % 8.5 %; Mean Corpuscular HGB Conc 32.5 g/dL (31.6-35.5); Mean Corpuscular Hemoglobin 27.1 pg (28.0-33.3); Mean Corpuscular Volume 83.3 fL (83.0-100.0); Mean Platelet Volume 9.4 fL (9.4-12.4); Monocytes # 0.5 K/mcL (0.0-1.3); Monocytes % 3.4 %; Neutrophils # 13.6 K/mcL (1.6-8.9); Platelet Count 335 K/mcL (140-400); Red Blood Count 5.57 M/mcL (4.19-5.50); Red Cell Distribution Width 13.4 % (11.5-14.5); Segmented Neutrophils % 86.8 %
[2018-03-24 06:30] LABS: BUN/Creatinine Ratio 14 (6-26); Blood Urea Nitrogen 9 mg/dL (8-23); Calcium 8.5 mg/dL (8.6-10.3); Carbon Dioxide 26 mEq/L (23-29); Chloride 104 mEq/L (98-107); Glucose 423 mg/dL (70-105); Osmolality,Calculated 297 (280-300); Sodium 135 mEq/L (136-145); eGFR For African Americans > 60 (> 60); eGFR For Non-African Americans > 60 (> 60)
[2018-03-24] MEDS ORDERED: Insulin LISPRO 300 UNITS/3 ML VIAL SQ SCH ×2 (07:30→21:00)
--- NOTE | 2018-03-24 07:46 | Pulmonology Consult Note ---
<Margaux Sifuentes M - Last Filed: 03/24/18 09:06> Date of Encounter: 03/24/18 Medications and Allergies No Known Home Drugs 03/24/18 [History] 3 Allergy/AdvReac Type Severity Reaction Status Date / Time No Known Allergies Allergy Verified 03/24/18 14:33 All Systems: The remainder of the systems were reviewed and are negative Physical Examination Vital Signs: Vital Signs, Last 4 Hours Temp Pulse Pulse Pulse Resp BP Pulse Ox 03/24/18 08:41 97.7 F 03/24/18 08:00 88 16 91/62 98 03/24/18 07:30 89 15 95/62 98 03/24/18 07:15 89 89 89 15 95/61 98 03/24/18 07:00 90 15 100/65 98 03/24/18 06:45 91 91 91 12 106/67 98 03/24/18 06:15 91 91 91 15 105/64 98 03/24/18 06:10 14 64/57 99 03/24/18 06:00 92 92 92 12 104/64 99 03/24/18 05:45 95 95 95 12 103/67 99 03/24/18 05:28 97.8 F 96 96 96 12 105/67 96 Ventilator Settings Ventilator Settings: Ventilator Settings, Last 8 Hours Ventilator Tidal Volume 400 Setting Ventilator Tidal Volume 400 Setting Ventilator Tidal Volume 400 Setting Ventilator Tidal Volume 400 Setting Ventilator Tidal Volume 400 Setting Ventilator Tidal Volume 400 Setting Ventilator Respiratory Rate 12 Setting Ventilator Respiratory Rate 12 Setting Ventilator Respiratory Rate 12 Setting Ventilator Respiratory Rate 12 Setting Ventilator Respiratory Rate 12 Setting Ventilator Respiratory Rate 12 Setting Actual Respiratory Rate 16 Actual Respiratory Rate 15 Actual Respiratory Rate 15 Actual Respiratory Rate 12 Actual Respiratory Rate 12 Actual Respiratory Rate 13 Positive End Expiratory 5 Pressure Positive End Expiratory 5 Pressure Positive End Expiratory 5 Pressure Positive End Expiratory 5 Pressure Positive End Expiratory 5 Pressure Peak Inspiratory Airway 13 Pressure Peak Inspiratory Airway 16 Pressure Peak Inspiratory Airway 16 Pressure Peak Inspiratory Airway 14 Pressure Results - Laboratory Findings CBC and BMP: 03/24/18 05:58 03/24/18 05:58 PT/INR, D-dimer PT 12.4 Seconds (9.4-12.1) H 03/24/18 01:30 Abnormal lab findings: Abnormal lab results WBC 15.7 K/mcL (4.3-11.1) H 03/24/18 05:58 RBC 5.57 M/mcL (4.19-5.50) H 03/24/18 05:58 MCH 27.1 pg (28.0-33.3) L 03/24/18 05:58 Neutrophils # 13.6 K/mcL (1.6-8.9) H 03/24/18 05:58 PT 12.4 Seconds (9.4-12.1) H 03/24/18 01:30 Sodium 135 mEq/L (136-145) L 03/24/18 05:58 Creatinine 0.66 mg/dL (0.70-1.30) L 03/24/18 05:58 Glucose 423 mg/dL (70-105) H 03/24/18 05:58 POC Glucose 312 mg/dL (70-99) H 03/24/18 01:30 Calcium 8.5 mg/dL (8.6-10.3) L 03/24/18 05:58 Troponin I 0.06 ng/mL (< 0.04) H* 03/24/18 01:30 - Clinical Findings Intake & Output: Intake & Output 03/23/18 03/24/18 03/24/18 23:59 07:59 15:59 Intake Total 0 / 0 Output Total 900 / 900 300 / 300 Balance -900 / -900 -300 / -300 Weight 70.8 kg Consult Discharge Plan - Plan Referrals: NONE,PCP [Primary Care Provider] - - Attending Attestation I examined this patient and my medical decision-making was reviewed with the Resident Physician. I agree with the documented findings, disposition and treatment plan as described except to the extent set forth below. Patient seen and examined. Labs, radiology, chart personally reviewed. 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 Need chest x-ray and also ABG Cardiovascular: Cardiology management. GI: Nutrition per dietary and GI prophylaxis per routine Heme: DVT prophylaxis per routine Renal; urine out put and renal funtion reviewed Endorcine: blood glucose is monitored Lines: all lines checked and no evidence of infections Skin: skin care to prevent pressure ulcers per nursing routine care Discussed with the family at the bedside. <Lucia Kelly - Last Filed: 03/24/18 17:46> Date of Encounter: 03/24/18 Time of Encounter: 08:00 Assessment and Plan (1) STEMI (ST elevation myocardial infarction) Current Visit: Yes Status: Acute Cardiology patient Troponin 0.06 Pre-hospital EKG showed ST elevation in V1-V3 with ST depression in III and aVF LHC attempted 03/24/18 Goal MAP [address] surgery to re-evaluate Sunday morning Cardiac monitoring Continue Lovenox SQ, ASA rectal, amiodarone drip Qualifiers: Involved coronary artery: LAD coronary artery Qualified Code(s): I21.02 - ST elevation (STEMI) myocardial infarction involving left anterior descending coronary artery (2) On mechanically assisted ventilation Current Visit: Yes Status: Acute 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 Sedated on fentanyl gtt Tolerating vent well, saturating high 90's Plan CXR to check ET tube position Repeat ABG in AM Reassess need for mechanical ventilation in AM (3) Diabetes Current Visit: Yes Status: Chronic Low dose sliding scale insulin POC glucose > 400 this morning Plan: Recommend increasing to medium dose SSI Recommend Q6H Accu-cheks while NPO Qualifiers: Diabetes mellitus type: type 2 Diabetes mellitus fci insulin use: unspecified intermodal customer service insulin use status Diabetes mellitus complication status : with circulatory complication Diabetes mellitus complication detail: with other circulatory complications Qualified Code(s): E11.59 - Type 2 diabetes mellitus with other circulatory complications (4) DVT prophylaxis Current Visit: Yes Status: Acute Lovenox 40mg subQ daily History of Present Illness Consult date: 03/24/18 Requesting physician: John Hargrove History of present illness: Mr. Galvez is a 63 year-old male with h/o tobacco use and DM who presented to the ED with chest pain and was found to have EKG changes suggestive of STEMI ( ST elevation V1-V3; ST depression III and aVF). STEMI alert activated prior to pt's arrival and cath team alerted. Pt was seen and examined by [facility] 's Dr. Hargrove, he was taken to laborer [employer] [facility] for LHC. LAD stent placed, with minimal flow restored. Per cadiology event report, during heart cath the pt became agitated, unable to lie still and he was then intubated. Attempted IABP, but after gaining femoral access, both common iliacs were occluded severely enough the wire couldn't be advanced. Cardiothoracic surgery didn't think he was a candidate for emergent CABG, interventional cardiologists and CT surgeons at [place] and [place] also didn't think pt required emergent intervention since he was stable. He was taken to ICU for further care/monitoring and re-evaluated by CT surgery Sunday. Past Med Surg Social Fam HX - Past Medical History Medical history: diabetes, hyperlipidemia - Past Surgical History Surgical History: no surgical history - Social History Smoking Status: Current every day smoker Alcohol use: none Drug use: none ROS unobtainable: due to endotracheal tube All Systems: The remainder of the systems were reviewed and are negative Physical Examination Vital Signs: Vital Signs, Last 4 Hours Temp Pulse Pulse Pulse Resp BP Pulse Ox 03/24/18 07:30 89 15 95/62 98 03/24/18 07:15 89 89 89 15 95/61 98 03/24/18 07:00 90 15 100/65 98 03/24/18 06:45 91 91 91 12 106/67 98 03/24/18 06:15 91 91 91 15 105/64 98 03/24/18 06:10 14 64/57 99 03/24/18 06:00 92 92 92 12 104/64 99 03/24/18 05:45 95 95 95 12 103/67 99 03/24/18 05:28 97.8 F 96 96 96 12 105/67 96 General appearance: other (intubated, sedated) Effort: other (mechanical ventilation, tolerating well.) Auscultation: bilateral: clear Cardiovascular: regular rate and rhythm, other (amiodarone drip) Gastrointestinal: normoactive bowel sounds, soft, non-tender, non-distended Extremities: no cyanosis, no edema, no clubbing unable to assess due to mental status Ventilator Settings Ventilator Settings: Ventilator Settings, Last 8 Hours Ventilator Tidal Volume 400 Setting Ventilator Tidal Volume 400 Setting Ventilator Tidal Volume 400 Setting Ventilator Tidal Volume 400 Setting Ventilator Tidal Volume 400 Setting Ventilator Respiratory Rate 12 Setting Ventilator Respiratory Rate 12 Setting Ventilator Respiratory Rate 12 Setting Ventilator Respiratory Rate 12 Setting Ventilator Respiratory Rate 12 Setting Actual Respiratory Rate 15 Actual Respiratory Rate 15 Actual Respiratory Rate 12 Actual Respiratory Rate 12 Actual Respiratory Rate 13 Positive End Expiratory 5 Pressure Positive End Expiratory 5 Pressure Positive End Expiratory 5 Pressure Positive End Expiratory 5 Pressure Positive End Expiratory 5 Pressure Peak Inspiratory Airway 13 Pressure Peak Inspiratory Airway 16 Pressure Peak Inspiratory Airway 16 Pressure Peak Inspiratory Airway 14 Pressure Results - Laboratory Findings CBC and BMP: 03/24/18 05:58 03/24/18 05:58 PT/INR, D-dimer PT 12.4 Seconds (9.4-12.1) H 03/24/18 01:30 Abnormal lab findings: Abnormal lab results WBC 15.7 K/mcL (4.3-11.1) H 03/24/18 05:58 RBC 5.57 M/mcL (4.19-5.50) H 03/24/18 05:58 MCH 27.1 pg (28.0-33.3) L 03/24/18 05:58 Neutrophils # 13.6 K/mcL (1.6-8.9) H 03/24/18 05:58 PT 12.4 Seconds (9.4-12.1) H 03/24/18 01:30 Sodium 135 mEq/L (136-145) L 03/24/18 05:58 Creatinine 0.66 mg/dL (0.70-1.30) L 03/24/18 05:58 Glucose 423 mg/dL (70-105) H 03/24/18 05:58 Calcium 8.5 mg/dL (8.6-10.3) L 03/24/18 05:58 Troponin I 0.06 ng/mL (< 0.04) H* 03/24/18 01:30 - Clinical Findings Intake & Output: Intake & Output 03/23/18 03/23/18 03/24/18 15:59 23:59 07:59 Intake Total 0 / 0 Output Total 900 / 900 Balance -900 / -900 Weight 70.8 kg
--- NOTE | 2018-03-24 08:20 | Event Note ---
Date of Encounter: 03/24/18 Time of Encounter: 08:20 - Cardiology Event Note Notified by RN of SBP 90's, however MAP remains in 70's. Selected Entries 03/24/18 08:00 Pulse Rate 88 Respiratory Rate 16 Blood Pressure 91/62 O2 Sat by Pulse Oximetry 98 Fraction of Inspired Oxygen % 60 Oxygen Delivery Method Mechanical Ventilation Laboratory Tests 03/24/18 03/24/18 03/24/18 01:30 01:30 01:30 WBC 15.6 H Hgb 15.7 Hct 47.7 Plt Count 349 INR 1.1 Creatinine 0.81 Est GFR (Non-Af Amer) > 60 Magnesium 1.9 Troponin I 0.06 H* Patient evaluated and a line with damping waveform. Appears to be positional. Noninvasive blood pressure cuff shows systolic blood pressures in the 90s with map of 70. We will continue to monitor. Can consider dopamine drip if warranted. We will discuss with Dr. Hargrove. Update provided to family.
[2018-03-24] MEDS: Ipratropium/Albuterol Neb 3 ML IH SCH ×4 (08:33→19:38)
[2018-03-24] MEDS ORDERED: Lacri-Lube 3.5 GM TUBE BOTH EYES PRN (08:52)
[2018-03-24] MEDS ORDERED: Aspirin 81 MG TAB.CHEW PO SCH (09:00)
[2018-03-24] MEDS ORDERED: *HR* Ticagrelor 90 MG TABLET PO SCH (09:00)
[2018-03-24 09:52] LABS: ABG Base Excess -2 mEq/L (-2 to 3); ABG HCO3 24 mEq/L (21-27); ABG Oxygen Saturation 98 % (95-98); ABG PCO2 47 mmHg (35-45); ABG PH 7.32 pH Units (7.32-7.45); ABG PO2 123 mmHg (85-104); ABG TCO2 26 mEq/L (20-26); Blood Gas Modality AF; Blood Gas PEEP 5 cm H2O; Blood Gas Respiration Rate 12; Blood Gas VT 400 cc
[2018-03-24] MEDS: Amiodarone Premix 360 MG/200 ML BAG IVC SCH ×2 (09:56→21:24)
[2018-03-24] MEDS: Pantoprazole 40 MG VIAL IVP SCH (10:16)
[2018-03-24] MEDS: Chlorhexidine Rinse 15 ML MOUTHWASH MM SCH ×2 (10:16→19:49)
[2018-03-24] MEDS ORDERED: Perflutren Lipid Microsphere 1.3 ML in 0.9 % Sodium Chloride 8.7 ML IVP ONE (10:20)
[2018-03-24] MEDS ORDERED: *HR* Etomidate 20 MG/10 ML AMPUL IVP ONE (10:57)
[2018-03-24] MEDS ORDERED: *HR* Rocuronium Bromide 100 MG/10 ML VIAL IVC ONE (10:57)
[2018-03-24] MEDS: Lacri-Lube 3.5 GM TUBE BOTH EYES SCH ×4 (11:32→23:26)
[2018-03-24] MEDS ORDERED: *HR* Atropine Sulfate 1 MG/10 ML SYRINGE ONE (14:52)
[2018-03-25] MEDS: Ipratropium/Albuterol Neb 3 ML IH SCH ×6 (00:31→19:46)
[2018-03-25 03:19] LABS: Hematocrit 43.5 % (37.5-50.1); Hemoglobin 13.8 g/dL (12.9-16.9); Mean Corpuscular HGB Conc 31.7 g/dL (31.6-35.5); Mean Corpuscular Hemoglobin 26.8 pg (28.0-33.3); Mean Corpuscular Volume 84.5 fL (83.0-100.0); Mean Platelet Volume 9.5 fL (9.4-12.4); Platelet Count 277 K/mcL (140-400); Red Blood Count 5.15 M/mcL (4.19-5.50); Red Cell Distribution Width 13.8 % (11.5-14.5)
[2018-03-25] MEDS: Lacri-Lube 3.5 GM TUBE BOTH EYES SCH ×6 (03:33→23:31)
[2018-03-25 03:38] LABS: BUN/Creatinine Ratio 23 (6-26); Blood Urea Nitrogen 17 mg/dL (8-23); Calcium 8.1 mg/dL (8.6-10.3); Carbon Dioxide 23 mEq/L (23-29); Chloride 109 mEq/L (98-107); Glucose 207 mg/dL (70-105); Osmolality,Calculated 298 (280-300); Potassium 3.9 mEq/L (3.5-5.1); Sodium 140 mEq/L (136-145); eGFR For African Americans > 60 (> 60); eGFR For Non-African Americans > 60 (> 60)
[2018-03-25 04:57] LABS: ABG Base Excess -1 mEq/L (-2 to 3); ABG HCO3 26 mEq/L (21-27); ABG Oxygen Saturation 92 % (95-98); ABG PCO2 50 mmHg (35-45); ABG PH 7.32 pH Units (7.32-7.45); ABG PO2 70 mmHg (85-104); ABG TCO2 27 mEq/L (20-26); Blood Gas Modality VC; Blood Gas Respiration Rate 12; Blood Gas VT 400 cc
[2018-03-25] MEDS: Insulin LISPRO 300 UNITS/3 ML VIAL SQ SCH ×4 (06:02→23:30)
[2018-03-25] MEDS: *HR* Enoxaparin 40 MG/0.4 ML SYRINGE SQ SCH (06:04)
[2018-03-25] MEDS: FentaNYL (PF) 1,000 MCG in 0.9 % Sodium Chloride 80 ML IVC SCH (06:20)
--- NOTE | 2018-03-25 07:12 | Pulmonology Progress Note ---
<LeninMor W - Last Filed: 03/25/18 08:59> Date of Encounter: 03/25/18 Objective PUL Vital signs: Last Vital Signs Temp 98.3 F 03/25/18 03:48 Pulse 112 03/25/18 05:56 Resp 13 03/25/18 05:56 BP 105/65 03/25/18 05:56 Pulse Ox 91 03/25/18 05:56 Ventilator Settings Ventilator Settings: Ventilator Settings, Last 8 Hours Ventilator Tidal Volume 500 Setting Ventilator Tidal Volume 400 Setting Ventilator Tidal Volume 400 Setting Ventilator Tidal Volume 400 Setting Ventilator Tidal Volume 400 Setting Ventilator Tidal Volume 400 Setting Ventilator Tidal Volume 400 Setting Ventilator Tidal Volume 400 Setting Ventilator Tidal Volume 400 Setting Ventilator Tidal Volume 400 Setting Ventilator Tidal Volume 400 Setting Ventilator Respiratory Rate 14 Setting Ventilator Respiratory Rate 12 Setting Ventilator Respiratory Rate 12 Setting Ventilator Respiratory Rate 12 Setting Ventilator Respiratory Rate 12 Setting Ventilator Respiratory Rate 12 Setting Ventilator Respiratory Rate 12 Setting Ventilator Respiratory Rate 12 Setting Ventilator Respiratory Rate 12 Setting Ventilator Respiratory Rate 12 Setting Ventilator Respiratory Rate 12 Setting Actual Respiratory Rate 13 Actual Respiratory Rate 15 Actual Respiratory Rate 14 Actual Respiratory Rate 14 Actual Respiratory Rate 15 Actual Respiratory Rate 14 Actual Respiratory Rate 16 Actual Respiratory Rate 14 Actual Respiratory Rate 14 Actual Respiratory Rate 16 Positive End Expiratory 5 Pressure Positive End Expiratory 5 Pressure Positive End Expiratory 5 Pressure Positive End Expiratory 5 Pressure Positive End Expiratory 5 Pressure Positive End Expiratory 5 Pressure Positive End Expiratory 5 Pressure Positive End Expiratory 5 Pressure Positive End Expiratory 5 Pressure Positive End Expiratory 5 Pressure Positive End Expiratory 5 Pressure Peak Inspiratory Airway 6 Pressure Peak Inspiratory Airway 14 Pressure Peak Inspiratory Airway 6 Pressure Peak Inspiratory Airway 6 Pressure Peak Inspiratory Airway 11 Pressure Peak Inspiratory Airway 6.6 Pressure Peak Inspiratory Airway 8.1 Pressure Peak Inspiratory Airway 8.1 Pressure Peak Inspiratory Airway 8.1 Pressure Peak Inspiratory Airway 5 Pressure Results - Laboratory Findings CBC and BMP: 03/25/18 03:12 03/25/18 03:12 ABG ABG pH 7.32 pH Units (7.32-7.45) 03/25/18 04:50 ABG pCO2 50 mmHg (35-45) H 03/25/18 04:50 ABG pO2 70 mmHg (85-104) L 03/25/18 04:50 ABG O2 Saturation 92 % (95-98) L 03/25/18 04:50 PT/INR, D-dimer PT 12.4 Seconds (9.4-12.1) H 03/24/18 01:30 Abnormal lab findings: Abnormal lab results WBC 16.8 K/mcL (4.3-11.1) H 03/25/18 03:12 MCH 26.8 pg (28.0-33.3) L 03/25/18 03:12 Neutrophils # 13.6 K/mcL (1.6-8.9) H 03/24/18 05:58 PT 12.4 Seconds (9.4-12.1) H 03/24/18 01:30 ABG pCO2 50 mmHg (35-45) H 03/25/18 04:50 ABG pO2 70 mmHg (85-104) L 03/25/18 04:50 ABG Total CO2 27 mEq/L (20-26) H 03/25/18 04:50 ABG O2 Saturation 92 % (95-98) L 03/25/18 04:50 Chloride 109 mEq/L (98-107) H 03/25/18 03:12 Glucose 207 mg/dL (70-105) H 03/25/18 03:12 POC Glucose 167 mg/dL (70-99) H 03/24/18 23:26 Calcium 8.1 mg/dL (8.6-10.3) L 03/25/18 03:12 Troponin I 0.06 ng/mL (< 0.04) H* 03/24/18 01:30 - Clinical Findings Intake & Output: Intake & Output 03/24/18 03/24/18 03/25/18 15:59 23:59 07:59 Intake Total 100 / 100 1300 / 1300 200 / 200 Output Total 450 / 450 300 / 300 50 / 50 Balance -350 / -350 1000 / 1000 150 / 150 Weight 73 kg Consult Discharge Plan - Plan Referrals: NONE,PCP [Primary Care Provider] - - Attending Attestation I examined this patient and my medical decision-making was reviewed with the Resident Physician. I agree with the documented findings, disposition and treatment plan as described except to the extent set forth below. We independently had [id number] contact with the patient Patient seen and examined at bedside Labs, radiology, chart personally reviewed. Management was reviewed during multidisciplinary critical care rounds. 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: Patient is sedated for vent plan for spontaneous awake trial today Pulm: Hypoxic Respiratory failure secondary to cardiogenic pulmonary edema acceptable gas exchange today minimal vent requirements he is not a CPAP candidate because of ongoing cardiac ischemia with planned procedure Cards: Acute STEMI management per cardiology FEN-GI: Nothing by mouth for now Renal: Urine output monitored continue to monitored along with daily monitoring of serum creatinine and electrolytes ID: No acute issue Heme/Onc: H&H monitored and stable DVT prophylaxis per routine Endo: Glucose Monitored Integ/MSK: Skin Care per routine ICU Nursing Protocol to prevent ulcers. 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 Sedated on fentanyl gtt. Tolerating vent well, saturating high 90's. ABG shows slight increase in respiratory acidosis decrease in O2. - Continue mechanical ventilation. Update @ 1417: Cardiology came by to see patient. Plan is for patient to do a viability exam in outpatient setting to see if he would benefit from a CABG surgery. Plan is also to start the process for extubation. We will start him on solu-medrol 40 IV BID and see how he responds along with a CPAP trial. If tolerating, will plan to extubate. Will also start mild diuresis with Lasix 20 mg IV qd. (2) Tachycardia Current Visit: Yes Status: Acute HR has been increasing consistently since this morning. HR currently at 110 ( average 100 yesterday). - Metoprolol 2.5 mg IV q6HR with parameters. (3) Status post coronary artery stent placement Current Visit: Yes Status: Acute Status post coronary stent placement in the LAD with 100% stenosis before and after procedure. Patient is hemodynamically stable. Patient tachycardic heart rate 112. Blood pressure stable. - [place] cardiac surgery to reevaluate patient for further intervention. If cardiac surgery declines, cardiology to discuss transfer patient [facility]. (4) STEMI (ST elevation myocardial infarction) Current Visit: Yes Status: Acute Qualifiers: Involved coronary artery: LAD coronary artery Qualified Code(s): I21.02 - ST elevation (STEMI) myocardial infarction involving left anterior descending coronary artery (5) Diabetes Current Visit: Yes Status: Chronic Blood sugar level dropped from 423 yesterday down to 207 today. - Advanced to medium dose insulin sliding scale. - HgA1C check in AM. 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 Update @ 1439: Cardiology has stopped the heparin drip and has restarted brinlinta. Subjective Principal diagnosis: STEMI s/p PCI LAD Interval history: History was unable to be obtained due to patient being sedated. Objective PUL Vital signs: Last Vital Signs Temp 98.3 F 03/25/18 03:48 Pulse 112 03/25/18 05:56 Resp 13 03/25/18 05:56 BP 105/65 03/25/18 05:56 Pulse Ox 91 03/25/18 05:56 General appearance: no acute distress, asleep Effort: normal Auscultation: bilateral: clear Percussion: bilateral: not dull Tactile fremitus: bilateral: normal Cardiovascular: regular rate and rhythm Gastrointestinal: normoactive bowel sounds, non-distended Integumentary: normal Extremities: no cyanosis, no edema, no clubbing, pulses normal Musculoskeletal: no deformities unable to assess due to mental status Ventilator Settings Ventilator Settings: Ventilator Settings, Last 8 Hours Ventilator Tidal Volume 500 Setting Ventilator Tidal Volume 400 Setting Ventilator Tidal Volume 400 Setting Ventilator Tidal Volume 400 Setting Ventilator Tidal Volume 400 Setting Ventilator Tidal Volume 400 Setting Ventilator Tidal Volume 400 Setting Ventilator Tidal Volume 400 Setting Ventilator Tidal Volume 400 Setting Ventilator Tidal Volume 400 Setting Ventilator Tidal Volume 400 Setting Ventilator Respiratory Rate 14 Setting Ventilator Respiratory Rate 12 Setting Ventilator Respiratory Rate 12 Setting Ventilator Respiratory Rate 12 Setting Ventilator Respiratory Rate 12 Setting Ventilator Respiratory Rate 12 Setting Ventilator Respiratory Rate 12 Setting Ventilator Respiratory Rate 12 Setting Ventilator Respiratory Rate 12 Setting Ventilator Respiratory Rate 12 Setting Ventilator Respiratory Rate 12 Setting Actual Respiratory Rate 13 Actual Respiratory Rate 15 Actual Respiratory Rate 14 Actual Respiratory Rate 14 Actual Respiratory Rate 15 Actual Respiratory Rate 14 Actual Respiratory Rate 16 Actual Respiratory Rate 14 Actual Respiratory Rate 14 Actual Respiratory Rate 16 Positive End Expiratory 5 Pressure Positive End Expiratory 5 Pressure Positive End Expiratory 5 Pressure Positive End Expiratory 5 Pressure Positive End Expiratory 5 Pressure Positive End Expiratory 5 Pressure Positive End Expiratory 5 Pressure Positive End Expiratory 5 Pressure Positive End Expiratory 5 Pressure Positive End Expiratory 5 Pressure Positive End Expiratory 5 Pressure Peak Inspiratory Airway 6 Pressure Peak Inspiratory Airway 14 Pressure Peak Inspiratory Airway 6 Pressure Peak Inspiratory Airway 6 Pressure Peak Inspiratory Airway 11 Pressure Peak Inspiratory Airway 6.6 Pressure Peak Inspiratory Airway 8.1 Pressure Peak Inspiratory Airway 8.1 Pressure Peak Inspiratory Airway 8.1 Pressure Peak Inspiratory Airway 5 Pressure Results - Laboratory Findings CBC and BMP: 03/25/18 12:41 03/25/18 03:12 ABG ABG pH 7.32 pH Units (7.32-7.45) 03/25/18 04:50 ABG pCO2 50 mmHg (35-45) H 03/25/18 04:50 ABG pO2 70 mmHg (85-104) L 03/25/18 04:50 ABG O2 Saturation 92 % (95-98) L 03/25/18 04:50 PT/INR, D-dimer PT 12.4 Seconds (9.4-12.1) H 03/24/18 01:30 Abnormal lab findings: Abnormal lab results WBC 16.8 K/mcL (4.3-11.1) H 03/25/18 03:12 MCH 26.8 pg (28.0-33.3) L 03/25/18 03:12 Neutrophils # 13.6 K/mcL (1.6-8.9) H 03/24/18 05:58 PT 12.4 Seconds (9.4-12.1) H 03/24/18 01:30 ABG pCO2 50 mmHg (35-45) H 03/25/18 04:50 ABG pO2 70 mmHg (85-104) L 03/25/18 04:50 ABG Total CO2 27 mEq/L (20-26) H 03/25/18 04:50 ABG O2 Saturation 92 % (95-98) L 03/25/18 04:50 Chloride 109 mEq/L (98-107) H 03/25/18 03:12 Glucose 207 mg/dL (70-105) H 03/25/18 03:12 POC Glucose 167 mg/dL (70-99) H 03/24/18 23:26 Calcium 8.1 mg/dL (8.6-10.3) L 03/25/18 03:12 Troponin I 0.06 ng/mL (< 0.04) H* 03/24/18 01:30 - Clinical Findings Intake & Output: Intake & Output 03/24/18 03/24/18 03/25/18 15:59 23:59 07:59 Intake Total 100 / 100 1300 / 1300 200 / 200 Output Total 450 / 450 300 / 300 50 / 50 Balance -350 / -350 1000 / 1000 150 / 150 Weight 73 kg
[2018-03-25] MEDS: Chlorhexidine Rinse 15 ML MOUTHWASH MM SCH ×2 (08:49→20:20)
[2018-03-25] MEDS: Amiodarone Premix 360 MG/200 ML BAG IVC SCH (08:49)
--- NOTE | 2018-03-25 09:04 | Event Note ---
Date of Encounter: 03/25/18 Time of Encounter: 09:00 - Cardiology Event Note Patient intubated/sedated, easily arousable and becomes agitated. No significant ventricular ectopy, hemodynamically stable. Awaiting [place] cardiac surgery to see the patient in consult. If cardiac surgery declines to intervene on patient, will discuss elective transfer to [place] with family as previously discussed patient with Dr. Toro.
--- NOTE | 2018-03-25 09:50 | Electrocardiograph Report ---
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
--- NOTE | 2018-03-25 09:51 | Electrocardiograph Report ---
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
[2018-03-25] MEDS: Pantoprazole 40 MG VIAL IVP SCH (11:36)
[2018-03-25] MEDS ORDERED: *HR* Heparin 5,000 UNIT/ML VIAL IVP ONE (12:41)
[2018-03-25] MEDS ORDERED: *HR* Heparin 5,000 UNIT/ML VIAL IVP PRN ×2 (12:41)
[2018-03-25] MEDS ORDERED: Heparin 25,000 UNIT/500 ML D5W 25,000 UNIT/500 ML BAG IVC SCH (12:45)
[2018-03-25 13:32] LABS: Hematocrit 42.4 % (37.5-50.1); Hemoglobin 13.4 g/dL (12.9-16.9); Mean Corpuscular HGB Conc 31.6 g/dL (31.6-35.5); Mean Corpuscular Hemoglobin 26.9 pg (28.0-33.3); Mean Corpuscular Volume 85.1 fL (83.0-100.0); Mean Platelet Volume 9.8 fL (9.4-12.4); Platelet Count 284 K/mcL (140-400); Red Blood Count 4.98 M/mcL (4.19-5.50); Red Cell Distribution Width 14.1 % (11.5-14.5)
[2018-03-25 13:40] LABS: INR 1.3; Prothrombin Time 13.9 Seconds (9.4-12.1)
[2018-03-25 13:43] LABS: Activated Partial Thrombo Time 37.2 Seconds (26.0-36.0)
[2018-03-25] MEDS ORDERED: Furosemide 20 MG/2 ML VIAL IVP SCH (14:45)
[2018-03-25] MEDS ORDERED: Furosemide 20 MG/2 ML VIAL IVP ONE (14:56)
[2018-03-25] MEDS: *HR* Metoprolol 5 MG/5 ML VIAL IVP SCH (16:03)
[2018-03-25] MEDS: MethylPREDNISolone 40 MG/ML VIAL IVP SCH (16:04)
[2018-03-25] MEDS ORDERED: *HR* Atropine Sulfate 1 MG/10 ML SYRINGE ONE (16:15)
[2018-03-25] MEDS: *HR* Ticagrelor 90 MG TABLET PO SCH ×2 (17:09→19:50)
--- NOTE | 2018-03-25 17:37 | Cardiothoracic Consult Note ---
Date of Encounter: 03/25/18 Time of Encounter: 17:32 Assessment and Plan (1) STEMI (ST elevation myocardial infarction) Current Visit: Yes Status: Acute The patient is a 63-year-old poorly controlled diabetic (no medications he can) man with hypercholesterolemia who was admitted to [facility] on 03/22/2018 with a diagnosis of an acute STEMI. The patient had evidence of an anterior myocardial infarction was taken emergently to the cardiac catheterization laboratory. The patient was found to have severe two- vessel CAD and an LVEF 20-25%. In particular, the patient was found to have a completely occluded proximal LAD and diffusely diseased RCA from the proximal portion to the mid PDA. The patient has small diabetic vessels. An attempt was made to place stents in the proximal LAD to reestablish anterior myocardial perfusion; however, this was unsuccessful. An echocardiogram performed after the cardiac catheterization confirmed the severe ischemic cardiomyopathy. The patient had akinesis involving the anteroapical, anterolateral, mid anteroseptal , and apical george. Hypokinesis is noted in the inferior george. I have been asked to evaluate the patient for possible high risk CABG. The patient should undergo a myocardial viability study prior to considering high risk CABG. Is unclear whether the distal LAD can be grafted and the RCA/ PDA are to severely diseased and small to be bypassed. If the patient needs cardiac support after the CABG, he would be unable to have an intraaortic balloon pump inserted due to the bilateral iliac occlusions. This workup should be performed at a tertiary Medical Center that has LVAD capability given the patient's poor cardiac function. The assessment and plan as outlined above was discussed with the patient and/or family members who expressed understanding and agreement. All questions were answered. Qualifiers: Involved coronary artery: LAD coronary artery Qualified Code(s): I21.02 - ST elevation (STEMI) myocardial infarction involving left anterior descending coronary artery - History of Present Illness Consult date: 03/24/18 Requesting physician: John Hargrove Consult reason: CABG evaluation Chief complaint: STEMI History of present illness: Mr. Galvez is a 63 year old poorly controlled diabetic man with hypercholesterolemia who was admitted to [facility] on Sunday , 03/24/2018 with severe substernal chest pain radiating to his back and down his left arm. He had associated nausea and vomiting, but denied any shortness of breath, dyspnea on exertion diaphoresis, palpitations, or syncope. The patient has complained of fatigue for some time; however, has not had any previous substernal chest pain. In the emergency department patient was found to have ST elevation in the anterior leads and reciprocal ST depression in leads III and aVF. He was diagnosed as a STEMI and was taken emergently to the cardiac catheterization laboratory. During the procedure the patient was found to have severe two-vessel CAD and it LVEF 20-25%. In particular the patient had a completely occluded proximal LAD and a 40% OM1 lesion, a 50% proximal RCA lesion, a 70-80% distal RCA lesion, and a diffuse 70% mid PDA lesion. Attempts were made to place stents in the proximal LAD to reestablish flow; however this was unsuccessful. It should also be noted that the patient had bilateral common iliac occlusion. The procedure the patient remained very agitated and required intubation. The patient has been in the ICU, intubated and sedated, since his cardiac catheterization. Currently, the sedation has been lifted and the patient is a appropriate, though still intubated. Have been asked to evaluate the patient for possible high risk CABG. Past Med Surg Social Fam HX - Past Medical History Medical history: coronary artery disease, diabetes, hyperlipidemia - Past Surgical History Surgical History: no surgical history - Social History Smoking Status: Current every day smoker Alcohol use: none Drug use: none Current living situation: Home - Independent Activity Level: Very active Medications and Allergies No Known Home Drugs 03/24/18 [History] 3 Allergy/AdvReac Type Severity Reaction Status Date / Time No Known Allergies Allergy Verified 03/24/18 14:33 All Systems Review: The remainder of the systems were reviewed and are negative Physical Examination Vital Signs, Last 4 Hours Temp Pulse Pulse Resp BP Pulse Ox 03/25/18 17:00 108 23 108/68 94 03/25/18 16:13 29 03/25/18 16:00 120 28 124/70 93 03/25/18 15:18 18 93 03/25/18 15:15 108 03/25/18 15:14 108 03/25/18 15:00 97.9 F 108 16 99/68 93 03/25/18 14:00 106 16 101/69 93 03/25/18 13:34 14 104/67 94 General: No Apparent Distress, Other (Intubated and breathing comfortably) HEENT: Atraumatic, Normocephaly, Trachea midline Neck: No JVD, Normal carotid pulses Cardiac: Reg Rate and Rhythm, Normal S1 and S2, No Murmur Lungs: Normal Breath Sounds, No Wheeze, Rales, Rhonchi Neuro: Alert and responsive, No focal deficits noted, Motor nerves intact, Sensory nerves intact Vascular: Normal capillary refill Abdomen: Soft, Non-tender Skin: No rashes noted on visualized skin Musculoskeletal: No Chest Wall Tenderness Extremities: No Clubbing, No Cyanosis, No Edema Results 03/25/18 12:41 03/25/18 03:12 Lab Results, Last 24 hours 03/25/18 03/25/18 03/25/18 03:12 03:12 12:41 WBC 16.8 H 17.4 H Hgb 13.8 13.4 Hct 43.5 42.4 Plt Count 277 284 INR APTT Sodium 140 Potassium 3.9 Chloride 109 H Carbon Dioxide 23 BUN 17 Creatinine 0.74 Glucose 207 H Calcium 8.1 L 03/25/18 12:41 WBC Hgb Hct Plt Count INR 1.3 APTT 37.2 H Sodium Potassium Chloride Carbon Dioxide BUN Creatinine Glucose Calcium - Imaging Chest Xray: image reviewed (Normal cardiac size. Elevated right hemidiaphragm. Bilateral mid-lung airspace disease.) Consult Discharge Plan - Plan Referrals: NONE,PCP [Primary Care Provider] -
[2018-03-25] MEDS: Dexmedetomidine HCl 200 MCG in 0.9 % Sodium Chloride 50 ML IVPB SCH ×2 (17:55→22:50)
[2018-03-25] MEDS ORDERED: Amiodarone Premix 360 MG/200 ML BAG IVC ONE (21:37)
[2018-03-25] MEDS ORDERED: Amiodarone Premix 150 MG/100 ML BAG IVPB ONE (21:37)
[2018-03-25] MEDS ORDERED: 0.9 % Sodium Chloride 500 ML IVC ONE (22:26)
[2018-03-25] MEDS ORDERED: 0.9 % Sodium Chloride 1,000 ML ONE (23:59)
[2018-03-26] MEDS: Ipratropium/Albuterol Neb 3 ML IH SCH ×7 (00:30→23:46)
[2018-03-26] MEDS: FentaNYL (PF) 1,000 MCG in 0.9 % Sodium Chloride 80 ML IVC SCH (00:31)
[2018-03-26] MEDS: *HR* Metoprolol 5 MG/5 ML VIAL IVP SCH ×6 (00:32→16:46)
[2018-03-26] MEDS: Nitroglycerin 25 MG/250 ML INFUS..BTL IVC SCH (00:32)
[2018-03-26] MEDS: Piperacillin/Tazobactam 3.375 GM in 0.9 % Sodium Chloride Mini Bag 100 ML IVPB SCH ×4 (00:59→23:19)
[2018-03-26] MEDS: Norepinephrine 4 MG in D5% in Water 250 ML IVC SCH (01:59)
[2018-03-26 02:51] LABS: Basophils % 0.1 %; Hematocrit 42.4 % (37.5-50.1); Hemoglobin 13.6 g/dL (12.9-16.9); Immature Granulocytes % 0.5 % (0-4); Lymphocytes # 0.9 K/mcL (0.6-4.6); Lymphocytes % 4.7 %; Mean Corpuscular HGB Conc 32.1 g/dL (31.6-35.5); Mean Corpuscular Hemoglobin 27.5 pg (28.0-33.3); Mean Corpuscular Volume 85.7 fL (83.0-100.0); Mean Platelet Volume 10.1 fL (9.4-12.4); Monocytes # 1.1 K/mcL (0.0-1.3); Monocytes % 5.9 %; Neutrophils # 16.8 K/mcL (1.6-8.9); Platelet Count 269 K/mcL (140-400); Red Blood Count 4.95 M/mcL (4.19-5.50); Red Cell Distribution Width 14.1 % (11.5-14.5); Segmented Neutrophils % 88.8 %
[2018-03-26 03:07] LABS: Calcium 8.3 mg/dL (8.6-10.3); Potassium 4.2 mEq/L (3.5-5.1)
[2018-03-26] MEDS: Dexmedetomidine HCl 200 MCG in 0.9 % Sodium Chloride 50 ML IVPB SCH ×2 (03:23→12:18)
[2018-03-26] MEDS: Lacri-Lube 3.5 GM TUBE BOTH EYES SCH ×6 (03:25→23:20)
[2018-03-26] MEDS: Amiodarone Premix 360 MG/200 ML BAG IVC SCH ×2 (03:25→16:10)
[2018-03-26] MEDS: *HR* Enoxaparin 40 MG/0.4 ML SYRINGE SQ SCH ×2 (04:50→12:33)
[2018-03-26] MEDS: MethylPREDNISolone 40 MG/ML VIAL IVP SCH (04:55)
[2018-03-26] MEDS: Insulin LISPRO 300 UNITS/3 ML VIAL SQ SCH (04:56)
--- NOTE | 2018-03-26 05:43 | Event Note ---
Date of Encounter: 03/25/18 Time of Encounter: 23:30 Pt's BP is low at 70s. Discussed with cardiology Dr Magallanes, recommend central line and start levophed. After obtaining informed consent. Right IJ line was placed uneventfully upon first trial. 3 lumen were withdrawed, with good blood return. CXR ordered and shows line is in proper position.
[2018-03-26 06:35] LABS: Estimated Average Glucose 292 mg/dl; Hemoglobin A1C 11.8 %
--- NOTE | 2018-03-26 07:21 | Pulmonology Progress Note ---
<LeninMor W - Last Filed: 03/26/18 10:18> Date of Encounter: 03/26/18 Objective PUL Vital signs: Last Vital Signs Temp 98.0 F 03/26/18 03:59 Pulse 91 03/26/18 06:00 Resp 14 03/26/18 07:26 BP 93/64 03/26/18 07:26 Pulse Ox 95 03/26/18 07:26 Ventilator Settings Ventilator Settings: Ventilator Settings, Last 8 Hours Ventilator Tidal Volume 500 Setting Ventilator Tidal Volume 500 Setting Ventilator Tidal Volume 500 Setting Ventilator Tidal Volume 500 Setting Ventilator Tidal Volume 500 Setting Ventilator Tidal Volume 500 Setting Ventilator Tidal Volume 500 Setting Ventilator Tidal Volume 500 Setting Ventilator Tidal Volume 500 Setting Ventilator Respiratory Rate 12 Setting Ventilator Respiratory Rate 12 Setting Ventilator Respiratory Rate 12 Setting Ventilator Respiratory Rate 12 Setting Ventilator Respiratory Rate 12 Setting Ventilator Respiratory Rate 12 Setting Ventilator Respiratory Rate 12 Setting Ventilator Respiratory Rate 12 Setting Ventilator Respiratory Rate 12 Setting Actual Respiratory Rate 13 Actual Respiratory Rate 16 Actual Respiratory Rate 14 Actual Respiratory Rate 16 Actual Respiratory Rate 14 Actual Respiratory Rate 15 Actual Respiratory Rate 13 Actual Respiratory Rate 12 Actual Respiratory Rate 12 Positive End Expiratory 5 Pressure Positive End Expiratory 5 Pressure Positive End Expiratory 5 Pressure Positive End Expiratory 5 Pressure Positive End Expiratory 5 Pressure Positive End Expiratory 5 Pressure Positive End Expiratory 5 Pressure Positive End Expiratory 5 Pressure Positive End Expiratory 5 Pressure Peak Inspiratory Airway 8 Pressure Peak Inspiratory Airway 15 Pressure Peak Inspiratory Airway 15 Pressure Peak Inspiratory Airway 15 Pressure Peak Inspiratory Airway 15 Pressure Peak Inspiratory Airway 13 Pressure Peak Inspiratory Airway 17 Pressure Peak Inspiratory Airway 17 Pressure Peak Inspiratory Airway 17 Pressure Results - Laboratory Findings CBC and BMP: 03/26/18 02:42 03/26/18 02:42 ABG ABG pH 7.32 pH Units (7.32-7.45) 03/25/18 04:50 ABG pCO2 50 mmHg (35-45) H 03/25/18 04:50 ABG pO2 70 mmHg (85-104) L 03/25/18 04:50 ABG O2 Saturation 92 % (95-98) L 03/25/18 04:50 PT/INR, D-dimer PT 13.9 Seconds (9.4-12.1) H 03/25/18 12:41 Abnormal lab findings: Abnormal lab results WBC 19.0 K/mcL (4.3-11.1) H 03/26/18 02:42 MCH 27.5 pg (28.0-33.3) L 03/26/18 02:42 Neutrophils # 16.8 K/mcL (1.6-8.9) H 03/26/18 02:42 PT 13.9 Seconds (9.4-12.1) H 03/25/18 12:41 APTT 48.4 Seconds (26.0-36.0) H 03/26/18 02:42 ABG pCO2 50 mmHg (35-45) H 03/25/18 04:50 ABG pO2 70 mmHg (85-104) L 03/25/18 04:50 ABG Total CO2 27 mEq/L (20-26) H 03/25/18 04:50 ABG O2 Saturation 92 % (95-98) L 03/25/18 04:50 Chloride 108 mEq/L (98-107) H 03/26/18 02:42 Carbon Dioxide 20 mEq/L (23-29) L 03/26/18 02:42 BUN 29 mg/dL (8-23) H 03/26/18 02:42 Creatinine 1.51 mg/dL (0.70-1.30) H 03/26/18 02:42 Est GFR ( Amer) 57 (> 60) L 03/26/18 02:42 Est GFR (Non-Af Amer) 47 (> 60) L 03/26/18 02:42 Glucose 303 mg/dL (70-105) H 03/26/18 02:42 POC Glucose 261 mg/dL (70-99) H 03/25/18 23:28 Hemoglobin A1c 11.8 % (-5.6) H 03/26/18 02:42 Calculated Osmolality 301 (280-300) H 03/26/18 02:42 Calcium 8.3 mg/dL (8.6-10.3) L 03/26/18 02:42 Troponin I 0.06 ng/mL (< 0.04) H* 03/24/18 01:30 - Microbiology Findings Microbiology Findings: Microbiology, Last 48 Hours 03/25/18 13:08 Blood Culture - Preliminary Peripheral Venipuncture Culture is incubating and being continuously monitored for growth. Final report to follow. 03/25/18 13:13 Blood Culture - Preliminary Peripheral Venipuncture Culture is incubating and being continuously monitored for growth. Final report to follow. - Clinical Findings Intake & Output: Intake & Output 03/25/18 03/26/18 03/26/18 23:59 07:59 15:59 Intake Total 892 / 892 619 / 619 Output Total 350 / 350 50 / 50 Balance 542 / 542 569 / 569 Weight 75.2 kg Consult Discharge Plan - Plan Referrals: NONE,PCP [Primary Care Provider] - - Attending Attestation I examined this patient and my medical decision-making was reviewed with the Resident Physician. I agree with the documented findings, disposition and treatment plan as described except to the extent set forth below. We independently had [id number] contact with the patient Patient seen and examined at bedside Labs, radiology, chart personally reviewed. Management was reviewed during multidisciplinary critical care rounds. 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 no focal neuro deficits Pulm: Acute hypoxic respiratory failure./ Acute pneumonia (HAP) / XBT today patient became apneic will retry after sedation held. Cards: Hypoxtensive s/t sepsis. now off pressors. STEMI cardiology managing. FEN-GI: NPO for now GI propylaxis given Renal: DENIS ?ZORAIDA hold diuretic renal dose all meds. Trend sCr. ID: Suspected PNA cultures obtained cont ABx for HAP need to deesdeclate baed upon micro data/clinical course. Heme/Onc: DVT prophylaxis given Endo: Glucose Monitored but remains high start insulin infusion Integ/MSK: Skin Care per routine ICU Nursing Protocol to prevent ulcers. Lines: All lines examined without evidence of infection : Dispo: ICU CODE: Full <Golden Hahn - Last Filed: 03/26/18 12:07> Date of Encounter: 03/26/18 Time of Encounter: 08:30 Assessment and Plan (1) On mechanically assisted ventilation Current Visit: Yes Status: Acute Patient is still intubated. Verced was stopped yesterday. Overnight patient's blood pressure dipped down into the 70s systolic. He was started on Levophed. BP has been stable since. Levophed turned off. Patient still currently on fentanyl. In the morning patient became apneic on CPAP and was transitioned back to mechanical ventilator. - Continue mechanical ventilator for now. Plan to transition to CPAP and is able to tolerate oral plan to extubate. - Discontinue Solu-Medrol. (2) Status post coronary artery stent placement Current Visit: Yes Status: Acute Status post coronary stent placement in the LAD with 100% stenosis before and after procedure. Patient is hemodynamically stable. Vitals stable. Heart rate controlled. Currently off of pressors. - Per cardiology, if he is stable during remainder of hospital course, he will be referred as outpatient for viability study and if anterior wall is viable, CT coronary angiogram or repeat cath to assess target for bypass. If he has symptoms or unable to stabilze him, will transfer up to [place] for inpatient evaluation. (3) STEMI (ST elevation myocardial infarction) Current Visit: Yes Status: Acute See plan above. Qualifiers: Involved coronary artery: LAD coronary artery Qualified Code(s): I21.02 - ST elevation (STEMI) myocardial infarction involving left anterior descending coronary artery (4) Atrial fibrillation Current Visit: Yes Status: Resolved Patient went into atrial fibrillation last night. He was placed on amiodarone drip and converted back to normal sinus rhythm. - Continue amiodarone drip. Qualifiers: Atrial fibrillation type: paroxysmal Qualified Code(s): I48.0 - Paroxysmal atrial fibrillation (5) Leukocytosis Current Visit: Yes Status: Acute Patient had a fever overnight of 100.4. Blood cultures were drawn and patient was started on zosyn and vanc. Currentle afebrile. WBC cound increased from 17.4 to 19. - Continue zosyn. - Continue vancomycin. Qualifiers: Leukocytosis type: bandemia Qualified Code(s): D72.825 - Bandemia (6) Acute kidney injury Current Visit: Yes Status: Acute Creatinine increased from 0.74 to 1.51 today. Yesterday he was started on vancomycin and lasix 20 IV. - Lasix on hold. (7) Diabetes Current Visit: Yes Status: Chronic Blood sugar level increased yesterday from 207 up to 303. HgbA1C of 11.8. Advanced to medium dose insulin sliding scale yesterday. - Started on insulin infusion protocol. Qualifiers: Diabetes mellitus type: type 2 Diabetes mellitus correction insulin use: unspecified intermediate card tender insulin use status Diabetes mellitus complication status : with circulatory complication Diabetes mellitus complication detail: with other circulatory complications Qualified Code(s): E11.59 - Type 2 diabetes mellitus with other circulatory complications (8) DVT prophylaxis Current Visit: Yes Status: Acute Lovenox 40mg subQ daily. Subjective Principal diagnosis: STEMI s/p PCI LAD Interval history: Patient denies any chest pain. Says his breathing has improved since yesterday. Denies any abdominal pain, nausea, or vomiting. Objective PUL Vital signs: Last Vital Signs Temp 98.0 F 03/26/18 03:59 Pulse 91 03/26/18 06:00 Resp 14 03/26/18 06:00 BP 86/65 03/26/18 06:00 Pulse Ox 94 03/26/18 06:00 General appearance: no acute distress, other (Intubated.) Eyes: nonicteric ENT: oropharynx moist Neck: supple Effort: normal Auscultation: bilateral: clear Percussion: bilateral: not dull Tactile fremitus: bilateral: normal Cardiovascular: regular rate and rhythm Gastrointestinal: normoactive bowel sounds, soft, non-tender, non-distended Integumentary: normal Extremities: no cyanosis, no edema, no clubbing, pink and warm, pulses normal, no ischemia or petechiae Musculoskeletal: no deformities normal mental status mood appropriate, affect normal Ventilator Settings Ventilator Settings: Ventilator Settings, Last 8 Hours Ventilator Tidal Volume 500 Setting Ventilator Tidal Volume 500 Setting Ventilator Tidal Volume 500 Setting Ventilator Tidal Volume 500 Setting Ventilator Tidal Volume 500 Setting Ventilator Tidal Volume 500 Setting Ventilator Tidal Volume 500 Setting Ventilator Tidal Volume 500 Setting Ventilator Tidal Volume 500 Setting Ventilator Respiratory Rate 12 Setting Ventilator Respiratory Rate 12 Setting Ventilator Respiratory Rate 12 Setting Ventilator Respiratory Rate 12 Setting Ventilator Respiratory Rate 12 Setting Ventilator Respiratory Rate 12 Setting Ventilator Respiratory Rate 12 Setting Ventilator Respiratory Rate 12 Setting Ventilator Respiratory Rate 12 Setting Actual Respiratory Rate 16 Actual Respiratory Rate 14 Actual Respiratory Rate 16 Actual Respiratory Rate 14 Actual Respiratory Rate 15 Actual Respiratory Rate 13 Actual Respiratory Rate 12 Actual Respiratory Rate 12 Actual Respiratory Rate 24 Positive End Expiratory 5 Pressure Positive End Expiratory 5 Pressure Positive End Expiratory 5 Pressure Positive End Expiratory 5 Pressure Positive End Expiratory 5 Pressure Positive End Expiratory 5 Pressure Positive End Expiratory 5 Pressure Positive End Expiratory 5 Pressure Positive End Expiratory 5 Pressure Peak Inspiratory Airway 15 Pressure Peak Inspiratory Airway 15 Pressure Peak Inspiratory Airway 15 Pressure Peak Inspiratory Airway 15 Pressure Peak Inspiratory Airway 13 Pressure Peak Inspiratory Airway 17 Pressure Peak Inspiratory Airway 17 Pressure Peak Inspiratory Airway 17 Pressure Peak Inspiratory Airway 7.5 Pressure Results - Laboratory Findings CBC and BMP: 03/26/18 02:42 03/26/18 02:42 ABG ABG pH 7.32 pH Units (7.32-7.45) 03/25/18 04:50 ABG pCO2 50 mmHg (35-45) H 03/25/18 04:50 ABG pO2 70 mmHg (85-104) L 03/25/18 04:50 ABG O2 Saturation 92 % (95-98) L 03/25/18 04:50 PT/INR, D-dimer PT 13.9 Seconds (9.4-12.1) H 03/25/18 12:41 Abnormal lab findings: Abnormal lab results WBC 19.0 K/mcL (4.3-11.1) H 03/26/18 02:42 MCH 27.5 pg (28.0-33.3) L 03/26/18 02:42 Neutrophils # 16.8 K/mcL (1.6-8.9) H 03/26/18 02:42 PT 13.9 Seconds (9.4-12.1) H 03/25/18 12:41 APTT 48.4 Seconds (26.0-36.0) H 03/26/18 02:42 ABG pCO2 50 mmHg (35-45) H 03/25/18 04:50 ABG pO2 70 mmHg (85-104) L 03/25/18 04:50 ABG Total CO2 27 mEq/L (20-26) H 03/25/18 04:50 ABG O2 Saturation 92 % (95-98) L 03/25/18 04:50 Chloride 108 mEq/L (98-107) H 03/26/18 02:42 Carbon Dioxide 20 mEq/L (23-29) L 03/26/18 02:42 BUN 29 mg/dL (8-23) H 03/26/18 02:42 Creatinine 1.51 mg/dL (0.70-1.30) H 03/26/18 02:42 Est GFR ( Amer) 57 (> 60) L 03/26/18 02:42 Est GFR (Non-Af Amer) 47 (> 60) L 03/26/18 02:42 Glucose 303 mg/dL (70-105) H 03/26/18 02:42 POC Glucose 261 mg/dL (70-99) H 03/25/18 23:28 Hemoglobin A1c 11.8 % (-5.6) H 03/26/18 02:42 Calculated Osmolality 301 (280-300) H 03/26/18 02:42 Calcium 8.3 mg/dL (8.6-10.3) L 03/26/18 02:42 Troponin I 0.06 ng/mL (< 0.04) H* 03/24/18 01:30 - Microbiology Findings Microbiology Findings: Microbiology, Last 48 Hours 03/25/18 13:08 Blood Culture - Preliminary Peripheral Venipuncture Culture is incubating and being continuously monitored for growth. Final report to follow. 03/25/18 13:13 Blood Culture - Preliminary Peripheral Venipuncture Culture is incubating and being continuously monitored for growth. Final report to follow. - Clinical Findings Intake & Output: Intake & Output 03/25/18 03/25/18 03/26/18 15:59 23:59 07:59 Intake Total 245 / 245 892 / 892 619 / 619 Output Total 175 / 175 350 / 350 50 / 50 Balance 70 / 70 542 / 542 569 / 569 Weight 75.2 kg
--- NOTE | 2018-03-26 08:21 | Cardiology Progress Note ---
Date of Encounter: 03/26/18 Time of Encounter: 08:00 Assessment and Plan (1) STEMI (ST elevation myocardial infarction) Current Visit: Yes Status: Acute sp PCI proximal mid LAD without rastafari of SHARI 2-3 coronary flow. Multiple discussions with family and cardiac surgery here and at [facility]. Patient is chest pain free, plan is to try to extubate him and medically manage him. If he is stable during remainder of hospital course, he will be referred as outpatient for viability study and if anterior wall is viable, CT coronary angiogram or repeat cath to assess target for bypass. If he has symptoms or unable to stabilze him, will transfer up to [place] for inpatient evaluation. AFib overnight back to on amiodarone Hypotensive episode on low dose phenylephrine; check CVP Qualifiers: Involved coronary artery: LAD coronary artery Qualified Code(s): I21.02 - ST elevation (STEMI) myocardial infarction involving left anterior descending coronary artery (2) Diabetes Current Visit: Yes Status: Chronic SSI QID FS The assessment and plan as outlined above was discussed with the patient and/or family members who expressed understanding and agreement. All questions were answered. Qualifiers: Diabetes mellitus type: type 2 Diabetes mellitus emt intermediate insulin use: unspecified snf insulin use status Diabetes mellitus complication status : with circulatory complication Diabetes mellitus complication detail: with other circulatory complications Qualified Code(s): E11.59 - Type 2 diabetes mellitus with other circulatory complications (3) Acute kidney injury Current Visit: Yes Status: Acute Multifactorial, systolic CHF/acute NE/IV diuretic/nephrotoxic vancomycin/ contrast/hypotension. DC lasix and vanc, continue to monitor urine output. Patient not edematous and does not sound particularly wet, perhaps some of the hypotension 2/2 hypovolemia. Check CVP to assess whether to give him low bolus of fluids. (4) Leukocytosis Current Visit: Yes Status: Acute blood cultures sent yesterday then zosyn and vancomycin were given (vanc held currently 2/2 lopze) for worsening leukocytosis, he was febrile this morning Qualifiers: Leukocytosis type: bandemia Qualified Code(s): D72.825 - Bandemia Discussion w patient/family: The assessment and plan as outlined above was discussed with the patient and/or family members who expressed understanding and agreement. All questions were answered. Thank you for involving us in the care of your patient. Please call with any questions. Subjective Principal diagnosis: STEMI s/p PCI LAD Interval history: sp anterior NE, unable to restore flow in the LAD. EF 20-25%. Difficult anterior intubation - glidescope - for agitation. Atrial fibrillation overnight back on amio back in sinus. First hypotensive episode this morning on phenylephrine. Patient awake and following commands, denies chest discomfort. He wants to be extubated. Objective Vital Signs, Last 4 Hours Pulse Resp BP Pulse Ox 03/26/18 07:26 14 93/64 95 03/26/18 06:00 91 14 86/65 94 03/26/18 04:50 90 14 99/64 96 General: No Apparent Distress HEENT: Atraumatic Neck: No JVD Cardiac: Reg Rate and Rhythm Lungs: Normal Breath Sounds, Other Neuro: Alert and responsive Abdomen: Soft Skin: No rashes noted on visualized skin Musculoskeletal: No Chest Wall Tenderness Extremities: No Edema Results 03/26/18 02:42 03/26/18 02:42 Lab Results 03/25/18 03/25/18 03/25/18 12:41 12:41 21:03 WBC 17.4 H Hgb 13.4 Hct 42.4 Plt Count 284 INR 1.3 APTT 37.2 H 64.7 H D Sodium Potassium Chloride Carbon Dioxide BUN Creatinine Glucose Calcium 03/26/18 03/26/18 03/26/18 02:42 02:42 02:42 WBC 19.0 H Hgb 13.6 Hct 42.4 Plt Count 269 INR APTT 48.4 H Sodium 137 Potassium 4.2 Chloride 108 H Carbon Dioxide 20 L BUN 29 H Creatinine 1.51 H Glucose 303 H Calcium 8.3 L Consult Discharge Plan - Plan Referrals: NONE,PCP [Primary Care Provider] -
[2018-03-26] MEDS: Chlorhexidine Rinse 15 ML MOUTHWASH MM SCH ×2 (08:40→19:53)
[2018-03-26] MEDS: *HR* Ticagrelor 90 MG TABLET PO SCH ×2 (08:40→19:51)
[2018-03-26] MEDS: Pantoprazole 40 MG VIAL IVP SCH (08:40)
[2018-03-26] MEDS ORDERED: Insulin Human Regular 100 UNIT in 0.9 % Sodium Chloride 100 ML IVC SCH (11:00)
[2018-03-26] MEDS ORDERED: *HR* Digoxin 0.5 MG/2 ML AMPUL IVP ONE ×3 (15:25→18:48)
[2018-03-26] MEDS ORDERED: *HR* Heparin 5,000 UNIT/ML VIAL IVP ONE (15:26)
[2018-03-26] MEDS ORDERED: *HR* Heparin 5,000 UNIT/ML VIAL IVP PRN ×2 (15:26)
[2018-03-26] MEDS ORDERED: Heparin 25,000 UNIT/500 ML D5W 25,000 UNIT/500 ML BAG IVC SCH (15:30)
[2018-03-26 16:30] LABS: Troponin I 41.21 ng/mL (< 0.04)
[2018-03-26] MEDS ORDERED: 0.9 % Sodium Chloride 500 ML ONE (16:31)
[2018-03-26 16:57] LABS: INR 1.4; Prothrombin Time 15.6 Seconds (9.4-12.1)
[2018-03-26 17:00] LABS: Activated Partial Thrombo Time 36.4 Seconds (26.0-36.0)
[2018-03-26] MEDS: *HR* Amiodarone 200 MG TABLET PO SCH (17:24)
[2018-03-26] MEDS ORDERED: Vancomycin 1 EACH in EMPTY BAG 1 EACH IVPB SCH (18:00)
--- NOTE | 2018-03-26 18:37 | Electrocardiograph Report ---
[address] [place], [place] [address] Test Date: 2018-03-25 Pat Name: Doug Galvez Department: 109 Room: [facility] Gender: M Scale Balancer: : 1955 Requested By: John Hargrove Order Number: [id number] Reading MD: John Hargrove Measurements Intervals Slaughters Rate: 133 P: SC: 0 QRS: 92 QRSD: 83 T: 75 QT: 269 QTc: 347 Interpretive Statements ATRIAL FIBRILLATION WITH RAPID VENTRICULAR RESPONSE BORDERLINE RIGHT AXIS DEVIATION LOW QRS VOLTAGE ANTEROSEPTAL MYOCARDIAL INFARCTION, PROBABLY RECENT Electronically Signed On 03-26-2018 18:36:09 EDT by John Hargrove
--- NOTE | 2018-03-26 18:46 | Event Note ---
Date of Encounter: 03/26/18 Time of Encounter: 18:42 Patient was extubated earlier this afternoon around [id number]. 30 minutes afterwards patient went into Af-Fib RVR with a HR of 130. He was given 5 mg metorpolol IV which did not convert him back. Patient was then put on PO amiodarone as well as IV amiodarone and had his heparin drip restarted. Patient conintued to be in RVR. He was also given 0.25 mg digoxin IV, which did not seem to help. Spoke to cardiology and given patient's EF of 25-30%, we will give another 0.25 mg dose of digoxin IV now and one in 6 hours. We will also hold his metoprolol IV and do a trial of metoprolol 12.5 PO.
[2018-03-26] MEDS: *HR* Digoxin 0.5 MG/2 ML AMPUL IVP ONE (19:23)
[2018-03-26] MEDS ORDERED: *HR* Amiodarone 200 MG TABLET PO SCH (21:00)
[2018-03-26 22:42] LABS: Mean Platelet Volume 10.3 fL (9.4-12.4)
[2018-03-26 22:43] LABS: Hematocrit 41.3 % (37.5-50.1); Hemoglobin 13.4 g/dL (12.9-16.9); Mean Corpuscular HGB Conc 32.4 g/dL (31.6-35.5); Mean Corpuscular Hemoglobin 27.2 pg (28.0-33.3); Mean Corpuscular Volume 83.9 fL (83.0-100.0); Platelet Count 291 K/mcL (140-400); Red Blood Count 4.92 M/mcL (4.19-5.50); Red Cell Distribution Width 14.3 % (11.5-14.5)
[2018-03-26 22:57] LABS: Calcium 8.4 mg/dL (8.6-10.3); Magnesium 2.3 mg/dL (1.6-2.6); Potassium 3.9 mEq/L (3.5-5.1)
[2018-03-27] MEDS: Norepinephrine 4 MG in D5% in Water 250 ML IVC SCH (00:05)
[2018-03-27] MEDS: *HR* Digoxin 0.5 MG/2 ML AMPUL IVP ONE (00:07)
[2018-03-27] MEDS: Nitroglycerin 25 MG/250 ML INFUS..BTL IVC SCH (02:14)
[2018-03-27] MEDS: Lacri-Lube 3.5 GM TUBE BOTH EYES SCH ×2 (02:42→08:11)
[2018-03-27] MEDS: Dexmedetomidine HCl 200 MCG in 0.9 % Sodium Chloride 50 ML IVPB SCH (02:44)
[2018-03-27] MEDS: Ipratropium/Albuterol Neb 3 ML IH SCH ×3 (03:20→11:14)
[2018-03-27] MEDS: Amiodarone Premix 360 MG/200 ML BAG IVC SCH (03:55)
[2018-03-27 05:17] LABS: Basophils % 0.1 %
[2018-03-27 05:19] LABS: Hematocrit 42.3 % (37.5-50.1); Hemoglobin 13.9 g/dL (12.9-16.9); Immature Granulocytes % 1.4 % (0-4); Lymphocytes % 4.9 %; Mean Corpuscular HGB Conc 32.9 g/dL (31.6-35.5); Mean Corpuscular Hemoglobin 27.5 pg (28.0-33.3); Mean Corpuscular Volume 83.8 fL (83.0-100.0); Mean Platelet Volume 10.4 fL (9.4-12.4); Monocytes # 2.1 K/mcL (0.0-1.3); Monocytes % 6.6 %; Neutrophils # 27.4 K/mcL (1.6-8.9); Platelet Count 276 K/mcL (140-400); Red Blood Count 5.05 M/mcL (4.19-5.50); Red Cell Distribution Width 14.2 % (11.5-14.5)
[2018-03-27 05:36] LABS: Calcium 8.2 mg/dL (8.6-10.3); Potassium 3.9 mEq/L (3.5-5.1)
[2018-03-27 05:55] LABS: Lymphocytes # 1.5 K/mcL (0.6-4.6)
[2018-03-27 06:10] LABS: Platelet Estimate Normal (Normal); Toxic Vacuolation Present (Not Present)
--- NOTE | 2018-03-27 08:09 | Pulmonology Progress Note ---
<Mor Phelps W - Last Filed: 03/27/18 10:03> Date of Encounter: 03/27/18 Time of Encounter: 08:16 Objective PUL Vital signs: Last Vital Signs Temp 97.7 F 03/27/18 08:00 Pulse 142 03/27/18 08:00 Resp 16 03/27/18 08:00 BP 94/77 03/27/18 08:00 Pulse Ox 92 03/27/18 08:00 Results - Laboratory Findings CBC and BMP: 03/27/18 05:00 03/27/18 05:00 ABG ABG pH 7.32 pH Units (7.32-7.45) 03/25/18 04:50 ABG pCO2 50 mmHg (35-45) H 03/25/18 04:50 ABG pO2 70 mmHg (85-104) L 03/25/18 04:50 ABG O2 Saturation 92 % (95-98) L 03/25/18 04:50 PT/INR, D-dimer PT 15.6 Seconds (9.4-12.1) H 03/26/18 16:30 Abnormal lab findings: Abnormal lab results WBC 31.5 K/mcL (4.3-11.1) H* 03/27/18 05:00 MCH 27.5 pg (28.0-33.3) L 03/27/18 05:00 Neutrophils # 27.4 K/mcL (1.6-8.9) H 03/27/18 05:00 Monocytes # 2.1 K/mcL (0.0-1.3) H 03/27/18 05:00 Toxic Vacuolation Present (Not Present) A 03/27/18 05:00 PT 15.6 Seconds (9.4-12.1) H 03/26/18 16:30 APTT 57.5 Seconds (26.0-36.0) H 03/27/18 05:00 ABG pCO2 50 mmHg (35-45) H 03/25/18 04:50 ABG pO2 70 mmHg (85-104) L 03/25/18 04:50 ABG Total CO2 27 mEq/L (20-26) H 03/25/18 04:50 ABG O2 Saturation 92 % (95-98) L 03/25/18 04:50 Carbon Dioxide 18 mEq/L (23-29) L 03/27/18 05:00 BUN 52 mg/dL (8-23) H 03/27/18 05:00 Creatinine 3.00 mg/dL (0.70-1.30) H 03/27/18 05:00 Est GFR ( Amer) 26 (> 60) L 03/27/18 05:00 Est GFR (Non-Af Amer) 21 (> 60) L 03/27/18 05:00 Glucose 122 mg/dL (70-105) H 03/27/18 05:00 POC Glucose 153 mg/dL (70-99) H 03/27/18 00:03 Hemoglobin A1c 11.8 % (-5.6) H 03/26/18 02:42 Calcium 8.2 mg/dL (8.6-10.3) L 03/27/18 05:00 Troponin I 41.21 ng/mL (< 0.04) H* 03/26/18 15:15 Vancomycin Trough 17 mcg/mL (5-10) H 03/26/18 15:15 - Microbiology Findings Microbiology Findings: Microbiology, Last 48 Hours 03/26/18 08:42 Sputum Culture - Preliminary Sputum Gram Positive Cocci 03/25/18 13:08 Blood Culture - Preliminary Peripheral Venipuncture Culture is incubating and being continuously monitored for growth. Final report to follow. 03/25/18 13:13 Blood Culture - Preliminary Peripheral Venipuncture Culture is incubating and being continuously monitored for growth. Final report to follow. - Clinical Findings Intake & Output: Intake & Output 03/26/18 03/27/18 03/27/18 23:59 07:59 15:59 Intake Total 1102.9 / 1102.9 572.8 / 572.8 Output Total 275 / 275 0 / 0 150 / 150 Balance 827.9 / 827.9 572.8 / 572.8 -150 / -150 Weight 77.9 kg 77.9 kg Consult Discharge Plan - Plan Referrals: NONE,PCP [Primary Care Provider] - - Attending Attestation I examined this patient and my medical decision-making was reviewed with the Resident Physician. I agree with the documented findings, disposition and treatment plan as described except to the extent set forth below. We independently had [id number] contact with the patient Patient seen and examined at bedside Labs, radiology, chart personally reviewed. Management was reviewed during multidisciplinary critical care rounds. COMMODITIES CLERK: Awake and alert no deficits Pulm:Acute hypoxic respiratory failure liberated from vent yesterday stable on nasal cannula. NIV as needed. COPD with acute exacerbation. Cont BDs Acute PNA on Cards: STEMI medical mngt per cardiology primary. AFIB RVR difficulty to control cont Digoxin and Amiodarone infusion Borderline hypotension but MAP remains >60. Suspected FEN-GI: NPO for now if stable can ADAT later today Renal: DENIS likely s/t to ZORAIDA start Diuresis. Appreciate Nephrology Recs. Renal dose meds. Swith vanc to Linezolid ID: Staph ?MRSA PNA rising white count ID consulted switch to Linezolid. Heme/Onc: DVT prophylaxis given. H/H stable Endo: Glucose Monitored DM uncontrolled on insulin infusion. Transition to PO when taking PO consistently Integ/MSK: Skin Care per routine ICU Nursing Protocol to prevent ulcers. Lines: All lines examined without evidence of infection : Dispo: Remain in ICU today. Very high risk for decompnesation. CODE:Full Patient and Family updated <Golden Hahn - Last Filed: 03/27/18 13:10> Date of Encounter: 03/27/18 Assessment and Plan (1) Atrial fibrillation with RVR Current Visit: Yes Status: Acute After extubation yesterday afternoon patient went into A. fib RVR. He was given IV metoprolol which did not seem to help. He was then put on amiodarone drip which ultimately did not seem to help him. The addition of oral amiodarone did not seem to help as well. Patient was then given a 0.25 mg dose of digoxin which still did not improve. Given his low ejection fraction it was decided to not move him to a Cardizem drip. We continued to give 0.25 mg dose of digoxin every 6 hours. His IV metoprolol was transitioned to by mouth metoprolol 12.5 mg. Patient is now in atrial flutter RVR. Blood pressure is stable 103/80. He currently denies any chest pain or shortness of breath. Denies any palpitations. Positive fluid balance of 1928. Suspect atrial fibrillation secondary to hydrostatic stress. - Continue IV amiodarone and by mouth amiodarone. - Increase metoprolol to 25 mg by mouth. - 40 mg IV Lasix. - Continue telemetry. - We will transition to a cardiac diet later this afternoon. (2) BiPAP (biphasic positive airway pressure) dependence Current Visit: Yes Status: Acute Patient was extubated yesterday. He was on nasal cannula oxygen throughout the night. He reported some minor dyspnea overnight. Oxygen saturation had been 91 or greater since last night. Patient was put on BiPAP intermittently early this morning due to difficulty breathing. Currently at 94% O2 on 4 L of nasal cannula. (3) Status post coronary artery stent placement Current Visit: Yes Status: Acute Status post coronary stent placement in the LAD with 100% stenosis before and after procedure. Patient is hemodynamically stable. Currently off of pressors. - Per cardiology, if he is stable during remainder of hospital course, he will be referred as outpatient for viability study and if anterior wall is viable, CT coronary angiogram or repeat cath to assess target for bypass. If he has symptoms or unable to stabilze him, will transfer up to [place] for inpatient evaluation. (4) STEMI (ST elevation myocardial infarction) Current Visit: Yes Status: Acute See plan above. Qualifiers: Involved coronary artery: LAD coronary artery Qualified Code(s): I21.02 - ST elevation (STEMI) myocardial infarction involving left anterior descending coronary artery (5) Leukocytosis Current Visit: Yes Status: Acute Patient afebrile overnight. White blood cell count still around 31-32. Currently on day 2 of vancomycin and Zosyn. Sputum cultures preliminary positive for staph A. - Vancomycin was discontinued. Started on linezolid. - Continue Zosyn. - Consult to infectious disease on hold for now due to possibility of patient being transferred. Qualifiers: Leukocytosis type: bandemia Qualified Code(s): D72.825 - Bandemia (6) Acute kidney injury Current Visit: Yes Status: Acute Creatinine level increased yesterday from 2.7 up to 3 today. Per nephrology, acute kidney injury likely related to contrast nephropathy and possible nephrotoxicity from vancomycin. Plan is to obtain a renal ultrasound. - Follow up with renal ultrasound. - Vancomycin discontinued. - Avoid nephrotoxins. (7) Diabetes Current Visit: Yes Status: Chronic Glucose level improved to 122. - Discontinue IV insulin infusion. - Start high-dose insulin sliding scale. Qualifiers: Diabetes mellitus type: type 2 Diabetes mellitus penitentiary insulin use: unspecified penitentiary insulin use status Diabetes mellitus complication status : with circulatory complication Diabetes mellitus complication detail: with other circulatory complications Qualified Code(s): E11.59 - Type 2 diabetes mellitus with other circulatory complications (8) DVT prophylaxis Current Visit: Yes Status: Acute On heparin drip. Subjective Principal diagnosis: STEMI s/p PCI LAD Interval history: Patient denies any chest pain. Says his breathing has improved since yesterday. Denies any abdominal pain, nausea, or vomiting. Objective PUL Vital signs: Last Vital Signs Temp 97.4 F L 03/27/18 03:00 Pulse 144 03/27/18 06:00 Resp 16 03/27/18 07:23 BP 103/80 03/27/18 06:00 Pulse Ox 96 03/27/18 07:23 General appearance: no acute distress Eyes: nonicteric ENT: oropharynx moist Neck: supple Effort: normal Auscultation: bilateral: clear Percussion: bilateral: not dull Tactile fremitus: bilateral: normal Cardiovascular: irregular rhythm Gastrointestinal: normoactive bowel sounds, soft, non-tender, non-distended Integumentary: normal Extremities: no cyanosis, no edema, no clubbing, pink and warm, pulses normal, no ischemia or petechiae Musculoskeletal: no deformities normal mental status mood appropriate, affect normal Results - Laboratory Findings CBC and BMP: 03/27/18 05:00 03/27/18 05:00 ABG ABG pH 7.32 pH Units (7.32-7.45) 03/25/18 04:50 ABG pCO2 50 mmHg (35-45) H 03/25/18 04:50 ABG pO2 70 mmHg (85-104) L 03/25/18 04:50 ABG O2 Saturation 92 % (95-98) L 03/25/18 04:50 PT/INR, D-dimer PT 15.6 Seconds (9.4-12.1) H 03/26/18 16:30 Abnormal lab findings: Abnormal lab results WBC 31.5 K/mcL (4.3-11.1) H* 03/27/18 05:00 MCH 27.5 pg (28.0-33.3) L 03/27/18 05:00 Neutrophils # 27.4 K/mcL (1.6-8.9) H 03/27/18 05:00 Monocytes # 2.1 K/mcL (0.0-1.3) H 03/27/18 05:00 Toxic Vacuolation Present (Not Present) A 03/27/18 05:00 PT 15.6 Seconds (9.4-12.1) H 03/26/18 16:30 APTT 57.5 Seconds (26.0-36.0) H 03/27/18 05:00 ABG pCO2 50 mmHg (35-45) H 03/25/18 04:50 ABG pO2 70 mmHg (85-104) L 03/25/18 04:50 ABG Total CO2 27 mEq/L (20-26) H 03/25/18 04:50 ABG O2 Saturation 92 % (95-98) L 03/25/18 04:50 Carbon Dioxide 18 mEq/L (23-29) L 03/27/18 05:00 BUN 52 mg/dL (8-23) H 03/27/18 05:00 Creatinine 3.00 mg/dL (0.70-1.30) H 03/27/18 05:00 Est GFR ( Amer) 26 (> 60) L 03/27/18 05:00 Est GFR (Non-Af Amer) 21 (> 60) L 03/27/18 05:00 Glucose 122 mg/dL (70-105) H 03/27/18 05:00 POC Glucose 153 mg/dL (70-99) H 03/27/18 00:03 Hemoglobin A1c 11.8 % (-5.6) H 03/26/18 02:42 Calcium 8.2 mg/dL (8.6-10.3) L 03/27/18 05:00 Troponin I 41.21 ng/mL (< 0.04) H* 03/26/18 15:15 Vancomycin Trough 17 mcg/mL (5-10) H 03/26/18 15:15 - Microbiology Findings Microbiology Findings: Microbiology, Last 48 Hours 03/26/18 08:42 Sputum Culture - Preliminary Sputum Gram Positive Cocci 03/25/18 13:08 Blood Culture - Preliminary Peripheral Venipuncture Culture is incubating and being continuously monitored for growth. Final report to follow. 03/25/18 13:13 Blood Culture - Preliminary Peripheral Venipuncture Culture is incubating and being continuously monitored for growth. Final report to follow. - Clinical Findings Intake & Output: Intake & Output 06/12/18 06/13/18 06/13/18 23:59 07:59 15:59 Intake Total 1102.9 / 1102.9 572.8 / 572.8 Output Total 275 / 275 0 / 0 Balance 827.9 / 827.9 572.8 / 572.8 Weight 77.9 kg 77.9 kg
[2018-03-27] MEDS: Piperacillin/Tazobactam 3.375 GM in 0.9 % Sodium Chloride Mini Bag 100 ML IVPB SCH (08:22)
[2018-03-27] MEDS: *HR* Ticagrelor 90 MG TABLET PO SCH (08:23)
[2018-03-27] MEDS: Pantoprazole 40 MG VIAL IVP SCH (08:23)
[2018-03-27] MEDS: Chlorhexidine Rinse 15 ML MOUTHWASH MM SCH (08:23)
[2018-03-27] MEDS: *HR* Amiodarone 200 MG TABLET PO SCH (08:23)
--- NOTE | 2018-03-27 08:51 | Nephrology Consult Note ---
Date of Encounter: 03/27/18 Time of Encounter: 08:49 Assessment and Plan (1) Acute kidney injury Current Visit: Yes Status: Acute Patient has acute kidney injury in the setting of an acute STEMI. He status post left heart catheterization. He has severely depressed left ventricular ejection fraction and could has an occluded LAD. Acute kidney injury is likely related to radiocontrast nephropathy and also possible nephrotoxicity from vancomycin. He also has had episodes of relative hypotension as well as a depressed left ventricular ejection fraction and atrial fibrillation with a rapid ventricular response. At this point the patient requires supportive cardiovascular care. There is no acute indication for dialysis. There is no clinical sign of atheroembolic disease. We will continue to monitor the patient. We will also obtain a renal ultrasound. Nephrotoxins should be avoided. (2) STEMI (ST elevation myocardial infarction) Current Visit: Yes Status: Acute Qualifiers: Involved coronary artery: LAD coronary artery Qualified Code(s): I21.02 - ST elevation (STEMI) myocardial infarction involving left anterior descending coronary artery History of Present Illness - History of Present Illness This is a 63-year-old male who is being seen for acute kidney injury. Patient was admitted on March [address] segment elevation [place]. He underwent a left heart catheter believe on March 24 that showed severe 2 vessel disease including an LAD. Left ventricular ejection fraction was 20-25%. Apparently he had a stent placed in the LAD but it was not successful in restoring flow. Patient has no previous history of renal disease other than a kidney stone about 30 years ago. On admission serum creatinine was normal at 0.6-0.7. Creatinine is increased today up to 3.00. Yesterday was 2.73. Troponin is 41.21. Patient also received vancomycin during his hospital stay but I believe that this has been discontinued. Patient has had some relative hypotension as low as 87/60. He also has had paroxysmal atrial fibrillation with ventricular rates as high as the 190s. The patient has a history of diabetes and hypertension for which she has been treated for approximately 8-10 years. Currently he says he is chest pain-free. Past Med Surg Social Fam HX - Past Medical History Medical history: coronary artery disease, diabetes, hyperlipidemia - Past Surgical History Surgical History: no surgical history - Social History Smoking Status: Current every day smoker Alcohol use: none Drug use: none Medications and Allergies No Known Home Drugs 06/10/18 [History] 3 Allergy/AdvReac Type Severity Reaction Status Date / Time No Known Allergies Allergy Verified 03/24/18 14:33 Review of Systems Constitutional: as per HPI, weakness Nose, mouth and throat: no dizziness, no headache(s) Cardiovascular: as per HPI, chest pain at rest, chest pain with activity, dyspnea on exertion Respiratory: dyspnea on exertion Gastrointestinal: no abdominal pain, no change in bowel habits Musculoskeletal: no muscle weakness, no numbness Integumentary: no hirsutism, no striae Neurological: as per HPI Psychiatric: depression Endocrine: as per HPI Hematologic/Lymphatic: no easy bruising, no lymphadenopathy Exam - Vital Signs Vital signs: Initial Vital Signs Temp Pulse Resp BP Pulse Ox 97.9 F 73 22 134/69 92 03/24/18 01:19 03/24/18 01:19 03/24/18 01:19 03/24/18 01:19 03/24/18 01:19 Vital Signs - Last 8 Hours Temp Pulse Resp BP Pulse Ox 03/27/18 08:00 97.7 F 142 16 94/77 92 03/27/18 07:23 16 96 03/27/18 07:00 141 16 96/80 92 03/27/18 06:00 144 18 103/80 94 03/27/18 04:59 142 18 89/76 94 03/27/18 04:00 114 18 93/69 94 03/27/18 03:20 18 106/69 94 03/27/18 03:00 97.4 F L 98 18 106/69 94 03/27/18 02:00 107 16 70/47 93 03/27/18 01:00 86 16 87/58 97 Intake and Output 03/26/18 03/27/18 03/27/18 23:59 07:59 15:59 Intake Total 1102.9 / 1102.9 572.8 / 572.8 Output Total 275 / 275 0 / 0 150 / 150 Balance 827.9 / 827.9 572.8 / 572.8 -150 / -150 Intake: IV Fluids 382.9 / 382.9 572.8 / 572.8 Amiodarone Drip Premix 360mg/ 200 / 200 200 / 200 200mL 360 mg In 200 ml @ 0.5 MG /MIN 16.667 mls/hr IVC CONT [facility] Rx#:[id number] FentaNYL (PF) 1,000 MCG In 0.9 0 / 0 % Sodium Chloride 80 ML @ 75 MCG/HR 7.5 mls/hr IVC CONT [facility] Rx#:[id number] Heparin 25,000 UNIT/500 ML D5W 258 / 258 25,000 unit In 500 ml @ 14 UNIT /KG/HR 21.056 mls/hr IVC . [id number] [facility] Rx#:[id number] HumuLIN R 100 UNIT In 0.9 % 32.9 / 32.9 14.8 / 14.8 Sodium Chloride 100 ML @ 7 UNIT /HR 7.07 mls/hr IVC CONT [facility] Rx #:[id number] Precedex 200 Mcg In 0.9 % 0 / 0 Sodium Chloride 50 ML @ 0.3 MCG /KG/HR 5.69 mls/hr IVPB .[id number] [facility] Rx#:[id number] Magnesium Sulfate Premix 2gm/ 50 / 50 50mL 2 gm In 50 ml @ 50 mls/hr IVPB ONCE ONE Rx#:[id number] Zosyn 3.375 GM In 0.9 % Sodium 100 / 100 100 / 100 Chloride (Mini-Bag +) 100 ML @ 25 mls/hr IVPB Q8HR [facility] Rx#: [id number] Oral 720 / 720 0 / 0 Output: Catheter 275 / 275 0 / 0 150 / 150 Other: Weight 77.9 kg 77.9 kg Blood Glucose* 150 120 116 Patient Weight 03/27/18 23:59 Weight 77.9 kg - General Appearance Exam: Patient is alert and oriented. He is in no acute distress. Blood pressure 103/ 80. He is on an amiodarone drip as well as a heparin drip. Lungs symmetric breath sounds otherwise clear. Heart irregular rate and rhythm consistent with atrial fibrillation. Abdomen shows normal bowel sounds appraise masses fay megaly or tenderness. There is no lower extremity swelling. There are no atheroembolic changes to the patient's toes. A Stewart catheter is in place. Results - Lab Results 03/27/18 05:00 03/27/18 05:00 Most recent lab results ABG pH 7.32 pH Units (7.32-7.45) 03/25/18 04:50 ABG pCO2 50 mmHg (35-45) H 03/25/18 04:50 ABG pO2 70 mmHg (85-104) L 03/25/18 04:50 ABG HCO3 26 mEq/L (21-27) 03/25/18 04:50 ABG O2 Saturation 92 % (95-98) L 03/25/18 04:50 Calcium 8.2 mg/dL (8.6-10.3) L 03/27/18 05:00 Magnesium 2.3 mg/dL (1.6-2.6) 03/26/18 22:20 Consult Discharge Plan - Plan Referrals: NONE,PCP [Primary Care Provider] -
[2018-03-27] MEDS ORDERED: Aspirin 81 MG TAB.CHEW PO SCH (09:00)
[2018-03-27] MEDS ORDERED: Furosemide 40 MG/4 ML VIAL IVP SCH (11:15)
[2018-03-27] MEDS ORDERED: Insulin LISPRO 300 UNITS/3 ML VIAL SQ SCH (12:00)
--- NOTE | 2018-03-27 12:44 | Discharge Summary ---
Orders not resulted at time of discharge: Pending orders 03/25/18 13:08 Culture,Blood [BC] Routine 03/26/18 08:42 Culture,Sputum with Gram Stain [RM] Stat 03/26/18 09:00 Arterial Blood Gas DAILY 03/26/18 14:58 ECG 12 lead ECG [ECG] Stat 03/27/18 Complement Component 3 Routine Complement Component 4 Routine 03/27/18 08:55 Retroperitoneal Ultrasound - Complete [US retroperitoneal comp] [US] Routine 03/27/18 09:00 Arterial Blood Gas DAILY 03/27/18 11:56 Eosinophil,Urine [URIN] Routine 03/28/18 09:00 Arterial Blood Gas DAILY 03/29/18 09:00 Arterial Blood Gas DAILY 03/30/18 09:00 Arterial Blood Gas DAILY 03/31/18 09:00 Arterial Blood Gas DAILY 04/01/18 09:00 Arterial Blood Gas DAILY 04/02/18 09:00 Arterial Blood Gas DAILY Date of Encounter: 03/27/18 Time of Encounter: 12:39 - Discharge Diagnosis (1) STEMI (ST elevation myocardial infarction) Priority: Primary Status: Acute Qualifiers: Involved coronary artery: LAD coronary artery Qualified Code(s): I21.02 - ST elevation (STEMI) myocardial infarction involving left anterior descending coronary artery (2) Diabetes Priority: Secondary Status: Chronic Qualifiers: Diabetes mellitus type: type 2 Diabetes mellitus [place]man insulin use: unspecified custodial insulin use status Diabetes mellitus complication status : with circulatory complication Diabetes mellitus complication detail: with other circulatory complications Qualified Code(s): E11.59 - Type 2 diabetes mellitus with other circulatory complications (3) Acute kidney injury Priority: Secondary Status: Acute (4) Leukocytosis Priority: Secondary Status: Acute Qualifiers: Leukocytosis type: bandemia Qualified Code(s): D72.825 - Bandemia (5) Atrial fibrillation with RVR Priority: Secondary Status: Acute - Hospital Course Hospital course: Mr. Galvez is a 63 year old male with prior PMH of DM, tobacco abuse, and HLD that presented on 03/24/18 as anterior STEMI. S/P LHC 03/24/18 PCI proximal mid LAD without episcopal of SHARI 2-3 coronary flow. Pt was intubated following LHC, extubated as of yesterday and currently on 4L O2 NC. Initially, if pt was to remain stable during remainder of hospital course, he would be referred as outpatient for viability study and if anterior wall is viable, CT coronary angiogram or repeat cath to assess target for bypass. However, we have been unable to stabilze him and current plan is to transfer to [facility] for inpatient evaluation. On ASA, Brilinta, BB, Statin. Developed new PAF RVR, currently on PO amiodarone and IV, on IV heparin. Has been hypotensive, was on low dose phenylephrine yesterday. Troponin yesterday 41.21, was 0.06 on admission. DENIS with creatinine 3.00. Nephrology following. Suspect multifactorial, systolic CHF/acute SC/IV diuretic/nephrotoxic vancomycin/contrast/hypotension. Leukocytosis, WBC 31.5. Blood cultures sent, zosyn and vancomycin were given ( vanc held currently 2/2 denis) for worsening leukocytosis, he was febrile yesterday morning. Sputum culture preliminary report positive for gram positive cocci. Final pending. TTE LVEF 25-30%. Mild left ventricular diastolic dysfunction. No significant valvular dysfunction. Transferring to [facility] for further management. Accepting physician Dr. Mckeon. Time spent discussing smoking cessation with patient: 3 to 10 minutes - Time Spent with Patient Total time spent providing and/or coordinating discharge services: Less than 30 minutes - Discharge Medications Home Medications: Acetaminophen [Tylenol] 500 mg PO Q6HR PRN tablet 03/27/18 [Rx] Amiodarone [Cordarone] 400 mg PO BID tablet 03/27/18 [Rx] Aspirin 81 mg PO DAILY tab.chew 03/27/18 [Rx] Dextrose 50 % in Water (Syg) [Dextrose 50% (Syg)] 25 ml IVP AD PRN syringe [Rx] Dextrose Gel [Gluctose] 15 gm PO ONCE PRN tube 03/27/18 [Rx] Dextrose Gel [Gluctose] 30 gm PO ONCE PRN tube 03/27/18 [Rx] Furosemide [Lasix] 40 mg IVP DAILY vial 03/27/18 [Rx] Glucagon, Human Recombinant [Glucagen] 1 mg IM ONCE PRN vial 03/27/18 [Rx] Heparin 2,600 unit IVP Q6H PRN vial 03/27/18 [Rx] Heparin 5,300 unit IVP Q6HR PRN vial 03/27/18 [Rx] Insulin LISPRO [HumaLOG] 0 units SQ Q6HR vial 03/27/18 [Rx] Ipratropium/Albuterol Neb [Duoneb] 3 ml IH [id number] inhsol 03/27/18 [Rx] Metoprolol [Lopressor] 2.5 mg IVP Q6HR vial 03/27/18 [Rx] Metoprolol [Lopressor] 25 mg PO Q8HR tablet 03/27/18 [Rx] Ondansetron [Zofran] 4 mg IVP Q6HR PRN vial 03/27/18 [Rx] Pantoprazole [Protonix] 40 mg IVP DAILY vial 03/27/18 [Rx] Rosuvastatin [Crestor] 40 mg PO HS tablet 03/27/18 [Rx] Ticagrelor [Brilinta] 90 mg PO BID tablet 03/27/18 [Rx] hydrALAZINE [HydrALAZINE] 10 mg IVP Q6HR PRN vial 03/27/18 [Rx] Allergies/Adverse Reactions: 3 Allergy/AdvReac Type Severity Reaction Status Date / Time No Known Allergies Allergy Verified 03/24/18 14:33 Date of admission: 03/24/18 01:50 Primary care physician: PCP NONE Consults: 03/24/18 05:04 Consult to Pulmonology [CONS] Routine Consulting Provider: [facility] Reason for Consult: assistance with ventilator management Time Notified: 06:00 Call Completed: No 03/24/18 16:06 Consult to Cardiothoracic Surgery [CONS] Routine Consulting Provider: Cardiothoracic Surgery [place] Reason for Consult: open heart Call Completed: Yes 03/27/18 08:14 Consult to Infectious Diseases [CONS] Routine Consulting Provider: Infectious Disease [facility] Reason for Consult: Worsening Leukocytosis on antibiotcs. Time Notified: 08:00 Call Completed: Yes 03/27/18 08:15 Consult to Nephrology [CONS] Routine Consulting Provider: [facility] Reason for Consult: DENIS Time Notified: 08:05 Call Completed: Yes Discharging clinician: Arthur Dahl Anticipated date of discharge: 03/27/18 Physical Examination Vital Signs, Last 4 Hours Pulse Resp BP Pulse Ox 03/27/18 12:00 141 16 85/59 91 03/27/18 11:00 120 18 84/69 92 03/27/18 10:00 82 16 76/50 94 03/27/18 09:00 117 14 92/62 97 Vital Signs Temp Pulse Resp BP Pulse Ox 03/27/18 12:00 141 16 85/59 91 03/27/18 11:00 120 18 84/69 92 03/27/18 10:00 82 16 76/50 94 03/27/18 09:00 117 14 92/62 97 03/27/18 08:00 97.7 F 142 16 94/77 92 03/27/18 07:23 16 96 03/27/18 07:00 141 16 96/80 92 03/27/18 06:00 144 18 103/80 94 03/27/18 04:59 142 18 89/76 94 03/27/18 04:00 114 18 93/69 94 03/27/18 03:20 18 106/69 94 03/27/18 03:00 97.4 F L 98 18 106/69 94 03/27/18 02:00 107 16 70/47 93 03/27/18 01:00 86 16 87/58 97 03/27/18 00:00 96 16 111/70 97 03/26/18 23:46 16 111/70 92 03/26/18 23:00 98.0 F 98 18 118/74 94 03/26/18 22:00 93 18 105/69 94 03/26/18 20:54 96 18 104/94 94 03/26/18 20:03 18 106/70 94 03/26/18 20:00 97.6 F 98 16 106/70 94 03/26/18 19:00 94 16 95/57 91 03/26/18 18:00 123 16 94/71 91 03/26/18 17:00 127 14 90/70 92 03/26/18 16:00 98.1 F 122 16 96/73 90 03/26/18 15:00 135 14 97/69 94 03/26/18 14:30 14 97/69 97 03/26/18 14:27 16 97 03/26/18 14:00 93 19 104/70 96 03/26/18 13:00 93 14 95/65 98 Intake and Output 03/26/18 03/27/18 03/27/18 23:59 07:59 15:59 Intake Total 1102.9 / 1102.9 573.8 / 573.8 128 / 128 Output Total 275 / 275 0 / 0 150 / 150 Balance 827.9 / 827.9 573.8 / 573.8 -22 / -22 Intake: IV Fluids 382.9 / 382.9 573.8 / 573.8 128 / 128 Amiodarone Drip Premix 360mg/ 200 / 200 200 / 200 200mL 360 mg In 200 ml @ 0.5 MG /MIN 16.667 mls/hr IVC [facility] Rx#:[id number] FentaNYL (PF) 1,000 MCG In 0.9 0 / 0 % Sodium Chloride 80 ML @ 75 MCG/HR 7.5 mls/hr IVC [facility] Rx#:[id number] Heparin 25,000 UNIT/500 ML D5W 258 / 258 126 / 126 25,000 unit In 500 ml @ 14 UNIT /KG/HR 21.056 mls/hr IVC . [id number] [facility] Rx#:[id number] HumuLIN R 100 UNIT In 0.9 % 32.9 / 32.9 15.8 / 15.8 2 / 2 Sodium Chloride 100 ML @ 7 UNIT /HR 7.07 mls/hr IVC [facility] Rx #:[id number] Precedex 200 Mcg In 0.9 % 0 / 0 Sodium Chloride 50 ML @ 0.3 MCG /KG/HR 5.69 mls/hr IVPB .[id number] [facility] Rx#:[id number] Magnesium Sulfate Premix 2gm/ 50 / 50 50mL 2 gm In 50 ml @ 50 mls/hr IVPB ONCE ONE Rx#:[id number] Zosyn 3.375 GM In 0.9 % Sodium 100 / 100 100 / 100 Chloride (Mini-Bag +) 100 ML @ 25 mls/hr IVPB Q8HR [facility] Rx#: [id number] Oral 720 / 720 0 / 0 Output: Catheter 275 / 275 0 / 0 150 / 150 Other: Weight 77.9 kg 77.9 kg Blood Glucose* 150 120 116 Patient Weight 03/27/18 23:59 Weight 77.9 kg General: Conversant, No Apparent Distress HEENT: Atraumatic, Normocephaly, Mucus Membranes Moist Neck: Normal carotid pulses Cardiac: Reg Rate and Rhythm, Other (tachycardic) Lungs: Other (diminished) Neuro: Alert and responsive, No focal deficits noted Abdomen: Soft, Non-Tender Skin: No rashes noted on visualized skin Musculoskeletal: No Chest Wall Tenderness Extremities: No Clubbing, No Cyanosis, No Edema, Normal Pulses - Patient Status Disposition: Transfer Critical Access Hosp Condition: Critical Functional capacity at discharge: bed bound Overall status at discharge: patient is not back to baseline - Discharge Instructions Follow Up With: NONE,PCP [Primary Care Provider] - - Diet and Activity Activity: as per physical therapy Diet: diabetic diet, low fat, low cholesterol, low salt diet
[2018-03-27 14:14] VITALS: BP 98/71
--- NOTE | 2018-03-27 19:24 | Electrocardiograph Report ---
[place] [address] [place], [place] [address] Test Date: 2018-03-26 Pat Name: Doug Galvez Department: 109 Room: [facility] Gender: M [employer]: : 1955 Requested By: Mor Phelps Order Number: [id number] Reading MD: John Hargrove Measurements Intervals [place] Rate: 126 P: [place]: 0 QRS: 91 QRSD: 102 T: 77 QT: 288 QTc: 363 Interpretive Statements ATRIAL FIBRILLATION WITH RAPID VENTRICULAR RESPONSE BORDERLINE RIGHT AXIS DEVIATION LOW QRS VOLTAGE IN EXTREMITY LEADS ANTEROSEPTAL MYOCARDIAL INFARCTION MARKED ST ELEVATION, CONSIDER LATERAL INJURY Electronically Signed On 03-27-2018 19:22:50 EDT by John Hargrove
== END 2018-03-27 15:12 | disposition short-term general hospital (02) | DRG 246 ==
LOC: EMEROO 01:18 → ICNU 01:18
PROVIDERS: ADMIT Emergency Medicine; ATTEND Emergency Medicine